=== PATIENT | male | born 1930 | race Caucasian/White ===

== ENCOUNTER → 2017-01-06 | Outpatient (CLI) | payer MEDICARE ==
[~2017-01-06] MED LIST: 'CLONIDINE0.1 MG PO; ACCUPRIL20 MG PO; ACETAMINOPHEN PO; ALLEGRA ALLERG180 M2 PO; ALLEGRA180 MG PO; ALLEGRA30 MG PO; AMBIEN10 M1 PO; AMBIEN10 MG PO; AMBIEN5 MG PO; AMLODIPINE BES2.5 MG PO; AMLODIPINE BESYL5 MG PO; ASPI-COR81 M1 PO; ASPIRIN ADULT L81 M1 PO; ASPIRIN CHEWABL81 M1 PO; ASPIRIN E.C.325 MG PO; ASPIRIN E.C.81 MG; ASPIRIN81 M1 PO; CATAPRES-TTS 10.1 MG PO; CIPROFLOXACIN500 MG PO; CLARITIN10 MG PO; CLONAZEPAM0.5 MG PO; CLONIDINE0.1 MG PO; CLONIDINE0.2 MG PO; COLACE100 MG PO; DELTASONE2.5 M1 PO; EXELON4.6 MG/24 TD; EYE VITAMIN-MI1 EACH PO; EYE VITAMINS1 TAB PO; FIORICET 325 MG1 TAB PO; FISH OIL 10001000 MG PO; FLOMAX0.4 MG PO; GABAPENTIN800 MG PO; HYDROCODONE BIT1 T11 PO; HYDROCODONE/ACE1 TA2 PO; IMDUR SA30 MG PO; IMDUR30 MG PO; IMDUR60 MG PO; Imdur SA60 MG PO; LACTULOSE; LAMISIL250 MG PO; LASIX20 MG PO; LEVAQUIN750 M1 PO; LEXAPRO10 MG PO; LIPITOR40 MG PO; LISINOPRIL2.5 MG PO; LISINOPRIL20 MG PO; LISINOPRIL5 MG PO; LOPRESSOR25 MG PO; LOPRESSOR50 M1 PO; MECLIZINE HCL12.5 MG PO; MECLIZINE HCL25 M2 PO; METOPROLOL TART50 M1 PO; MIRALAX17 GM PO; MOTRIN800 MG PO; Meclizine25 MG PO; NAPROSYN500 MG PO; NEURONTIN100 MG PO; NEURONTIN400 MG PO; NEURONTIN600 MG PO; NITROSTAT0.4 MG SL; NORCO 5-325 TA1 EACH PO; NORVASC2.5 MG PO; NORVASC5 MG PO; Nizoral 2%15 GM T; OXYGEN NAS; PERCOCET 325 MG1 TA2 PO; PERCOCET 325 MG1 TA7 PO; PERCOCET 325 MG1 TAB PO; PLAVIX75 M1 PO; PLAVIX75 MG PO; POTASSIUM CHLO10 MEQ PO; PREDNISONE2.5 MG PO; PREDNISONE5 MG PO; PRILOSEC20 MG PO; PRINIVIL10 MG PO; RANEXA1000 MG PO; RANITIDINE150 MG PO; REGLAN5 MG PO; RIVASTIGMINE1 EACH T; TRILEPTAL300 MG PO; VICODIN 5/500 505 MG PO; VITAMIN D; VITAMIN D32000 I1 PO; VITAMIN D34000 UNIT PO; Vicodin 5/500 505 MG PO; XOLEGEL2% T; ZANTAC; ZANTAC 150150 MG PO; ZESTRIL,PRINIVIL5 MG PO; ZETIA10 MG PO; ZOFRAN4 MG PO; ZOLOFT100 MG PO; ZOLOFT25 MG PO; ZYRTEC ALLERGY10 MG PO; ZYRTEC10 M3 PO; Zestril,Prinivil5 MG PO; Zofran4 MG PO; [UNRECOGNIZED DRUG - OTHER] PO; [UNRECOGNIZED DRUG - OTHER] PO
[2017-01-06 15:59] LABS: BASO # 0.1 10*3/uL (0.0-0.1); BASO % 0.7 % (0.0-1.0); EOS # 0.4 10*3/uL (0.0-0.4); EOS % 4.8 % (1.0-4.0); HEMATOCRIT 39.7 % (42.0-52.0); HEMOGLOBIN 13.1 g/dl (14.0-18.0); LYMPH # 1.8 10*3/uL (1.3-4.4); LYMPH % 24.4 % (27.0-41.0); MEAN CORPUSCULAR HGB 32.7 pg (27.0-31.0); MEAN PLATELET VOLUME 10.3 fl (9.6-12.3); MONO # 0.7 10*3/uL (0.1-1.0); MONO % 9.6 % (3.0-9.0); NEUT # 4.5 10*3/uL (2.3-7.9); NEUT % 60.2 % (47.0-73.0); PLATELET COUNT AUTOMATED 188 10*3/uL (130-400); RED BLOOD COUNT 4.01 10*6/uL (4.50-5.90); RED CELL DISTRI WIDTH 13.3 % (0-14.5); WHITE BLOOD COUNT 7.5 10*3/uL (4.8-10.8)
[2017-01-06 16:21] LABS: INTERNATIONAL NORM RATIO 1.1 (2.0-3.5)
== END | disposition home or self-care (01) ==
LOC: LAB 15:19
PROVIDERS: Internal Medicine Hematology & Oncology
DX: D68.9 Coagulation defect, unspecified (principal); D75.9 Disease of blood and blood-forming organs, unspecified; D63.8 Anemia in other chronic diseases classified elsewhere

== ENCOUNTER 2017-01-24 11:37 | Emergency (ER) | payer MEDICARE ==
[~2017-01-24] VITALS: Wt 81.6 kg
[2017-01-24 12:12] LABS: BASO % 0.3 % (0.0-1.0); EOS # 0.2 10*3/uL (0.0-0.4); EOS % 1.4 % (1.0-4.0); HEMATOCRIT 40.2 % (42.0-52.0); HEMOGLOBIN 13.2 g/dl (14.0-18.0); LYMPH # 2.8 10*3/uL (1.3-4.4); LYMPH % 26.4 % (27.0-41.0); MEAN CELL VOLUME 98.3 fl (80.0-94.0); MEAN CORPUSCULAR HGB 32.3 pg (27.0-31.0); MEAN CORPUSCULAR HGB CONC 32.8 g/dl (33.0-37.0); MEAN PLATELET VOLUME 10.1 fl (9.6-12.3); MONO # 0.9 10*3/uL (0.1-1.0); MONO % 8.1 % (3.0-9.0); NEUT # 6.7 10*3/uL (2.3-7.9); NEUT % 63.5 % (47.0-73.0); PLATELET COUNT AUTOMATED 193 10*3/uL (130-400); RED BLOOD COUNT 4.09 10*6/uL (4.50-5.90); RED CELL DISTRI WIDTH 13.8 % (0-14.5); WHITE BLOOD COUNT 10.6 10*3/uL (4.8-10.8)
[2017-01-24 12:25] LABS: INTERNATIONAL NORM RATIO 1.1 (2.0-3.5); PROTHROMBIN TIME 11.6 SECONDS (9.0-12.4)
[2017-01-24 12:35] VITALS: BP 168/92
[2017-01-24 12:35] LABS: BILIRUBIN NEGATIVE (NEGATIVE); BLOOD NEGATIVE (NEGATIVE); CLARITY SL CLOUDY (CLEAR); COLOR YELLOW (YELLOW); GLUCOSE NEGATIVE (NEGATIVE); KETONE TRACE (NEGATIVE); LEUKO ESTERASE NEGATIVE (NEGATIVE); NITRITE NEGATIVE (NEGATIVE); PH 5.5 (5.0-9.0); PROTEIN NEGATIVE (NEGATIVE); UROBILINOGEN 0.2 E.U./dl (0.2-1.0)
[2017-01-24 12:37] LABS: ALBUMIN 3.4 gm/dl (3.1-4.5); BUN 36 mg/dl (7-24); CARBON DIOXIDE 28 mmol/L (21-32); CHLORIDE 105 mmol/L (98-107); EST GLOM FILT AFRICAN AMERICAN 44 ml/min; GLUCOSE 96 mg/dL (65-99); MAGNESIUM 2.5 mg/dL (1.5-2.1); POTASSIUM 4.9 mmol/L (3.5-5.1); SGOT/AST 23 IU/L (3-35); SGPT/ALT 23 U/L (12-78); SODIUM 141 mmol/L (136-145)
[2017-01-24 12:49] LABS: ALKALINE PHOSPHATASE 66 U/L (45-117); BILIRUBIN, TOTAL 0.5 mg/dl (0.2-1.0); CKMB 1.1 ng/ml (0.5-3.6); CPK 114 U/L (39-308)
[2017-01-24 12:51] LABS: URINE REFLEX COMMENT NO (NO)
[2017-01-24 12:51] LABS: C-REACTIVE PROTEIN < 0.29 MG/DL (0-0.3); TROPONIN I < 0.015 ng/ml (<0.045)
== END 2017-01-24 12:45 | disposition short-term general hospital (02) ==
LOC: ED 11:37
PROVIDERS: Emergency Medicine
DX: I63.9 Cerebral infarction, unspecified (principal); I25.10 Atherosclerotic heart disease of native coronary artery without angina pectoris; I11.0 Hypertensive heart disease with heart failure; I50.32 Chronic diastolic (congestive) heart failure; K21.9 Gastro-esophageal reflux disease without esophagitis; G62.9 Polyneuropathy, unspecified; M19.90 Unspecified osteoarthritis, unspecified site; G30.9 Alzheimer's disease, unspecified; F02.80 Dementia in other diseases classified elsewhere, unspecified severity, without behavioral disturbance, psychotic disturbance, mood disturbance, and anxiety; Z79.899 Other long term (current) drug therapy; Z86.73 Personal history of transient ischemic attack (TIA), and cerebral infarction without residual deficits

== ENCOUNTER 2017-04-16 13:04 | Emergency (ER) | payer MEDICARE ==
[~2017-04-16] VITALS: Ht 167.6 cm; Wt 77.1 kg
[2017-04-16 13:43] LABS: BASO # 0.1 10*3/uL (0.0-0.1); BASO % 0.5 % (0.0-1.0); EOS # 0.2 10*3/uL (0.0-0.4); EOS % 2.1 % (1.0-4.0); HEMATOCRIT 42.4 % (42.0-52.0); HEMOGLOBIN 13.5 g/dl (14.0-18.0); LYMPH # 2.6 10*3/uL (1.3-4.4); LYMPH % 23.8 % (27.0-41.0); MEAN CELL VOLUME 101.9 fl (80.0-94.0); MEAN CORPUSCULAR HGB 32.5 pg (27.0-31.0); MEAN CORPUSCULAR HGB CONC 31.8 g/dl (33.0-37.0); MEAN PLATELET VOLUME 10.5 fl (9.6-12.3); MONO % 9.4 % (3.0-9.0); NEUT # 7.1 10*3/uL (2.3-7.9); NEUT % 63.7 % (47.0-73.0); PLATELET COUNT AUTOMATED 168 10*3/uL (130-400); RED BLOOD COUNT 4.16 10*6/uL (4.50-5.90); RED CELL DISTRI WIDTH 14.1 % (0-14.5); WHITE BLOOD COUNT 11.1 10*3/uL (4.8-10.8)
[2017-04-16 14:01] LABS: ALBUMIN 3.2 gm/dl (3.1-4.5); CREATININE 1.49 mg/dL (0.70-1.30); POTASSIUM 4.9 mmol/L (3.5-5.1); TOTAL PROTEIN 7.3 gm/dL (6.4-8.2)
[2017-04-16 14:40] LABS: BILIRUBIN NEGATIVE (NEGATIVE); BLOOD TRACE-INTACT (NEGATIVE); CLARITY SL CLOUDY (CLEAR); COLOR YELLOW (YELLOW); GLUCOSE NEGATIVE (NEGATIVE); KETONE NEGATIVE (NEGATIVE); LEUKO ESTERASE NEGATIVE (NEGATIVE); NITRITE NEGATIVE (NEGATIVE); PH 5.5 (5.0-9.0); SPECIFIC GRAVITY 1.015 (1.005-1.030); UROBILINOGEN 0.2 E.U./dl (0.2-1.0)
[2017-04-16 14:55] LABS: BACTERIA TRACE; WBC 0-2 wbc/hpf (0-5)
[2017-04-16 15:35] VITALS: BP 110/80
[2017-04-16] MEDS ORDERED: NORCO 10-325 T1 EACH PO (17:20)
== END 2017-04-16 17:21 | disposition home or self-care (01) ==
LOC: ED 13:04
PROVIDERS: Emergency Medicine
DX: M25.552 Pain in left hip (principal); R10.32 Left lower quadrant pain; I25.10 Atherosclerotic heart disease of native coronary artery without angina pectoris; M19.90 Unspecified osteoarthritis, unspecified site; K21.9 Gastro-esophageal reflux disease without esophagitis; I11.0 Hypertensive heart disease with heart failure; I50.9 Heart failure, unspecified; Z90.49 Acquired absence of other specified parts of digestive tract; Z86.73 Personal history of transient ischemic attack (TIA), and cerebral infarction without residual deficits; Z86.718 Personal history of other venous thrombosis and embolism; Z86.711 Personal history of pulmonary embolism; Z95.0 Presence of cardiac pacemaker; Z98.890 Other specified postprocedural states; Z95.1 Presence of aortocoronary bypass graft; Z79.899 Other long term (current) drug therapy; Z79.82 Long term (current) use of aspirin

== ENCOUNTER 2017-04-19 17:26 | Emergency (ER) | payer MEDICARE ==
[~2017-04-19] VITALS: Wt 82.6 kg
[~2017-04-19 17:26] MED LIST changes: +NORCO 10-325 T1 EACH PO
[2017-04-19 18:29] LABS: BASO # 0.1 10*3/uL (0.0-0.1); BASO % 0.6 % (0.0-1.0); EOS # 0.3 10*3/uL (0.0-0.4); EOS % 3.4 % (1.0-4.0); HEMATOCRIT 38.2 % (42.0-52.0); HEMOGLOBIN 12.4 g/dl (14.0-18.0); LYMPH # 2.4 10*3/uL (1.3-4.4); LYMPH % 27.7 % (27.0-41.0); MEAN CORPUSCULAR HGB 32.5 pg (27.0-31.0); MEAN CORPUSCULAR HGB CONC 32.5 g/dl (33.0-37.0); MEAN PLATELET VOLUME 10.4 fl (9.6-12.3); MONO # 0.8 10*3/uL (0.1-1.0); MONO % 9.2 % (3.0-9.0); NEUT # 5.2 10*3/uL (2.3-7.9); PLATELET COUNT AUTOMATED 193 10*3/uL (130-400); RED BLOOD COUNT 3.82 10*6/uL (4.50-5.90); RED CELL DISTRI WIDTH 13.6 % (0-14.5); WHITE BLOOD COUNT 8.8 10*3/uL (4.8-10.8)
[2017-04-19 18:46] LABS: ALBUMIN 3.2 gm/dl (3.1-4.5); CREATININE 1.52 mg/dL (0.70-1.30); POTASSIUM 4.7 mmol/L (3.5-5.1); TOTAL PROTEIN 6.7 gm/dL (6.4-8.2)
[2017-04-19 19:40] LABS: BILIRUBIN 1+ (NEGATIVE); BLOOD NEGATIVE (NEGATIVE); CLARITY SL CLOUDY (CLEAR); COLOR YELLOW (YELLOW); GLUCOSE NEGATIVE (NEGATIVE); KETONE NEGATIVE (NEGATIVE); LEUKO ESTERASE NEGATIVE (NEGATIVE); NITRITE NEGATIVE (NEGATIVE); PH 5.5 (5.0-9.0); SPECIFIC GRAVITY 1.025 (1.005-1.030)
[2017-04-19 19:46] LABS: BACTERIA 1+
[2017-04-19 20:00] VITALS: BP 123/78
[2017-04-19] MEDS ORDERED: NORCO 5-325 TA1 EACH PO (20:02)
== END 2017-04-19 21:03 | disposition home or self-care (01) ==
LOC: ED 17:26
PROVIDERS: Physician Assistant
DX: M48.06 Spinal stenosis, lumbar region (principal); M25.552 Pain in left hip; M25.551 Pain in right hip; Z79.899 Other long term (current) drug therapy

== ENCOUNTER 2017-04-27 16:18 | Emergency (ER) | payer MEDICARE ==
[~2017-04-27] VITALS: Ht 167.6 cm; Wt 80.7 kg
[2017-04-27 16:25] VITALS: BP 139/80
[2017-04-27 17:40] LABS: BASO % 0.4 % (0.0-1.0); EOS # 0.1 10*3/uL (0.0-0.4); EOS % 0.8 % (1.0-4.0); HEMATOCRIT 40.1 % (42.0-52.0); HEMOGLOBIN 13.2 g/dl (14.0-18.0); LYMPH # 1.9 10*3/uL (1.3-4.4); LYMPH % 16.9 % (27.0-41.0); MEAN CELL VOLUME 98.8 fl (80.0-94.0); MEAN CORPUSCULAR HGB 32.5 pg (27.0-31.0); MEAN CORPUSCULAR HGB CONC 32.9 g/dl (33.0-37.0); MEAN PLATELET VOLUME 9.9 fl (9.6-12.3); MONO # 0.9 10*3/uL (0.1-1.0); MONO % 8.5 % (3.0-9.0); NEUT % 73.1 % (47.0-73.0); PLATELET COUNT AUTOMATED 237 10*3/uL (130-400); RED BLOOD COUNT 4.06 10*6/uL (4.50-5.90); RED CELL DISTRI WIDTH 13.7 % (0-14.5)
[2017-04-27 17:45] LABS: BILIRUBIN 1+ (NEGATIVE); BLOOD NEGATIVE (NEGATIVE); CLARITY SL CLOUDY (CLEAR); COLOR YELLOW (YELLOW); GLUCOSE NEGATIVE (NEGATIVE); KETONE TRACE (NEGATIVE); LEUKO ESTERASE NEGATIVE (NEGATIVE); NITRITE NEGATIVE (NEGATIVE); PH 5.5 (5.0-9.0); SPECIFIC GRAVITY 1.025 (1.005-1.030)
[2017-04-27 17:51] LABS: ACT PARTIAL THROMBO TIME 23.2 SECONDS (20.8-31.5); INTERNATIONAL NORM RATIO 1.2 (2.0-3.5)
[2017-04-27 17:52] LABS: BACTERIA 2+; EPITHELIAL CELLS 0-2; RBC 0-2 rbc/hpf (0-2)
[2017-04-27 17:59] LABS: ALBUMIN 3.3 gm/dl (3.1-4.5); ALKALINE PHOSPHATASE 90 U/L (45-117); BUN 21 mg/dl (7-24); CHLORIDE 107 mmol/L (98-107); CKMB 0.6 ng/ml (0.5-3.6); CPK 60 U/L (39-308); CREATININE 1.35 mg/dL (0.70-1.30); LIPASE 117 U/L (73-393); MAGNESIUM 2.3 mg/dL (1.5-2.1); POTASSIUM 4.1 mmol/L (3.5-5.1); SGOT/AST 17 IU/L (3-35); SGPT/ALT 21 U/L (12-78); SODIUM 139 mmol/L (136-145)
[2017-04-27 18:01] LABS: TROPONIN I < 0.015 ng/ml (<0.045)
[2017-04-27] MEDS ORDERED: LASIX40 MG PO (21:30)
[2017-04-27] MEDS ORDERED: SEROQUEL25 MG PO (21:31)
[2017-04-27] MEDS ORDERED: VITAMIN D-32000 UNI1 PO (21:32)
[2017-04-27] MEDS ORDERED: ZOFRAN4 MG PO (21:33)
== END 2017-04-27 22:22 | disposition admitted as inpatient to this hospital (09) ==
LOC: ED 16:18
PROVIDERS: Emergency Medicine
DX: F33.3 Major depressive disorder, recurrent, severe with psychotic symptoms (principal); I11.0 Hypertensive heart disease with heart failure; I50.32 Chronic diastolic (congestive) heart failure; K21.9 Gastro-esophageal reflux disease without esophagitis; M19.90 Unspecified osteoarthritis, unspecified site; G62.9 Polyneuropathy, unspecified; I25.10 Atherosclerotic heart disease of native coronary artery without angina pectoris; Z86.73 Personal history of transient ischemic attack (TIA), and cerebral infarction without residual deficits; Z79.899 Other long term (current) drug therapy

== ENCOUNTER 2017-04-27 18:49 | Inpatient (IN) | payer MEDICARE ==
[~2017-04-27] VITALS: Ht 165.1 cm; Wt 80.9 kg
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
--- NOTE | ~2017-04-27 | PR ---
[place], [place] PROGRESS NOTE NAME: DARIO HUNT UNIT #: [id number] ROOM: 317 DOCTOR: VIANCA HARPER MD BIRTHDATE: [birth year] DOS: 04/29/2017 CHIEF COMPLAINT: "Good morning, call you my family, I need to talk to them." SUMMARY OF THE VISIT: The patient was interviewed as he was resting in bed. He did awake and engaged readily in conversation as he was yesterday. He was fixated on me, contacting his family and attempting to get a hold of them, so he can get out of here. He did calm and redirect when I told him that we would do that after breakfast. He voiced no other complaints. MENTAL STATUS: He is alert and oriented to self. It is unclear if he realizes where he is at and he is not oriented to time. Mood does seem to be somewhat anxious and fretful and he requires a great deal of support and redirection. There are no auditory or visual hallucinations, no delusions, no paranoia. There is no hypomania or micheal. Short term memory remains exceedingly poor. PLAN: I will increase Exelon patch from 4.6 to 9.5 mg a day, continue to engage in individual and hill milieu activity, explore possible placement options discharging then to the least restrictive environment when stable. VIANCA HARPER MD CM:PNTRANS [id number] VIANCA HARPER MD 04/29/17912 interface
--- NOTE | ~2017-04-27 | CON ---
[place], [place] REPORT OF CONSULTATION NAME: DARIO HUNT UNIT #: [id number] ROOM: 317 DOCTOR: RICARDA KINCAID MD BIRTHDATE: [birth year] DOS: 04/29/2017 HISTORY OF PRESENT ILLNESS: A rapid response was called at 2225 hours for complaints of chest pain. A short while before the rapid response was called, the patient complained of chest pain and the resident gave the patient Imdur 60 mg by mouth. The patient stated that he had been symptomatic with chest pain for about 15 minutes with associated nausea and vomiting. He also reports that his pacemaker fired. He said that prior to developing the chest pain; he had a lot of mucus in his throat, which he was expectorating. The pain persisted, though did not radiate to the chest or the shoulders or the back and was not associated with any shortness of breath. He is in the behavior unit ____ moderate cognitive disability. PHYSICAL EXAMINATION: GENERAL: On exam, he appears to be slightly uncomfortable because of mild central chest pain. SKIN: Warm and dry. HEENT: Normal examination. CHEST: Symmetrical. LUNGS: Clear. HEART: Regular and rhythmic. No murmurs, gallops, rubs or clicks appreciated ABDOMEN: Flat, soft, nontender. Bowel sounds present. EXTREMITIES: No edema. Pulses present bilaterally. NEUROLOGIC: No lateralizing signs. DIAGNOSTIC STUDIES: EKG showed a paced rhythm, could not be further identified. ASSESSMENT AND PLAN: Chest pain, history of coronary artery disease, history of cognitive disability. After evaluation, I recommended a 12-lead EKG, chest x-ray and troponin along with electrolytes. The patient was transferred to the ICU. I discussed the patient's case with the hospitalist and recommended a workup for near syncope. Results of the chest x-ray, troponin, electrolytes and CBC are pending and should be available in 48-72 hours. DIAGNOSES: Chest pain, history of coronary artery disease and cognitive disability. EKG, chest x-ray, troponin, electrolytes, transfer to the ICU were discussed with the hospitalist. [place], [place] REPORT OF CONSULTATION NAME: DARIO HUNT UNIT #: [id number] ROOM: 317 DOCTOR: RICARDA KINCAID MD BIRTHDATE: [birth year] RICARDA KINCAID MD CM:CONSTR:REPORT OF CONSULTATION 0505 05/02/17 1401 interface
--- NOTE | 2017-04-27 20:05 | NUR ---
DARIO HUNT a 87 year old M admitted via wheel chair from the EMERGENCY ROOM as a voluntary admission BY POA. Arrived on unit at 2004. ALLERGIES: RAGWEED. Vital signs are: 97.9-93-18 138/85. The POA GAVE VERBAL CONSENT FOR the following forms with stated understanding: Authorization For The Release of Medical Information, Clothing List, Consent to Voluntary Admission and Hospitalization, Consent and Release Forms/Receipt of Rights, Acknowledgement of Advance Directive Information, Behavioral Health Consent Form, and Informed Consent of Medications. [facility] A search was conducted and hazardous articles were removed. Client was oriented to the unit. KATHY ALEX
[2017-04-27] MEDS ORDERED: LASIX40 MG PO (21:30)
--- NOTE | 2017-04-27 21:30 | NUR ---
ATTEMPTED TO CALL [facility] AT [phone] TO VERIFY MEDICATIONS AND WAS UNABLE TO GET THROUGH. WILL CONTINUE TO TRY.
[2017-04-27] MEDS ORDERED: SEROQUEL25 MG PO (21:31)
[2017-04-27] MEDS ORDERED: VITAMIN D-32000 UNI1 PO (21:32)
[2017-04-27] MEDS ORDERED: ZOFRAN4 MG PO (21:33)
--- NOTE | 2017-04-27 21:44 | NUR ---
DR JACINTO UPDATED ON NEW PT ADMIT. GAVE ORDER TO PUT CONSULT UNDER DR RODDY MACKAY. NOTIFEIED THAT MED REC AND HEALTH HISTORY WAS COMPLETED.
--- NOTE | 2017-04-27 22:15 | NUR ---
ATTEMPTED TO CONTACT GROUP HOME AGAIN WITH NO SUCCESS.
--- NOTE | 2017-04-27 23:00 | NUR ---
ATTEMPTED TO CALL [facility] AGAIN WITH NO SUCESS. WILL PASS ON TO DAYLIGHT TO VERIFY MEDICATIONS AND FLU VACCINE.
[2017-04-27 23:03] VITALS: BP 138/85
[2017-04-27 23:11] VITALS: BP 138/85
--- NOTE | 2017-04-28 01:17 | NUR ---
24 HR chart check completed.
--- NOTE | 2017-04-28 01:38 | NUR ---
PT WAS CALM AND COOPERATIVE WITH ASSESSMENT AND ADMISSION SCREENS. 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 sAME APPLIES TO GLASSES. PT HAD LEFT GLASSES AT LONGTERM. PT DID BRING UPPER AND LOWER DENTURES THAT WERE HANDED TO THIS NURSE IN THE ER. DAUGHTER STAYED TO HELP ANSWER QUESTIONS IN THE ADMISSION PROCESS AND TO MAKE PT WAS CALM BEFORE SHE LEFT. PT WENT TO THE DININGROOM AND ATE SNACK AFTER THE ADMISSION WAS COMPLETED. PT HAS BEEN PLEASANTLY CONFUSED. PT THOUGHT HE WAS AT CUSTODIAL. ASSURED PT HE WAS NOT IN TROUBLE AND WAS NOT AT CUSTODIAL. REMINDED PT HE IS AT A HOSPITAL. DIRECTED EASILY. PT DENIES SI, HI, HALLUCINATIONS OR DELUSIONS. PT NOTED TO HAVE AUDITORY AND COMMAND HALLUCINATIONS TELLING HIM TO THROW A CHAIR OUT THE WINDOW AT THE LONGTERM. NO S/S OF DISTRESS. NO C/O PAIN.
--- NOTE | 2017-04-28 06:23 | NUR ---
PT SLEPT APPROXIMATELY 6 HOURS. NO S/S OF HALLUCINATIONS. NO DELUSIONS. Q15 MINUTE SAFETY CHECKS MAINTAINED. SEE [facility] FLOWSHEETS FOR SPECIFIC MONITORING.
[2017-04-28 07:17] LABS: BASO % 0.2 % (0.0-1.0); EOS # 0.2 10*3/uL (0.0-0.4); HEMATOCRIT 41.9 % (42.0-52.0); LYMPH # 3.2 10*3/uL (1.3-4.4); LYMPH % 28.1 % (27.0-41.0); MEAN CELL VOLUME 98.4 fl (80.0-94.0); MEAN CORPUSCULAR HGB 32.9 pg (27.0-31.0); MEAN CORPUSCULAR HGB CONC 33.4 g/dl (33.0-37.0); MONO # 0.9 10*3/uL (0.1-1.0); MONO % 7.6 % (3.0-9.0); NEUT # 7.1 10*3/uL (2.3-7.9); NEUT % 61.8 % (47.0-73.0); PLATELET COUNT AUTOMATED 252 10*3/uL (130-400); RED BLOOD COUNT 4.26 10*6/uL (4.50-5.90); RED CELL DISTRI WIDTH 13.8 % (0-14.5); WHITE BLOOD COUNT 11.5 10*3/uL (4.8-10.8)
[2017-04-28 07:48] LABS: BUN 17 mg/dl (7-24); CHLORIDE 106 mmol/L (98-107); CREATININE 1.35 mg/dL (0.70-1.30); POTASSIUM 4.1 mmol/L (3.5-5.1); SODIUM 141 mmol/L (136-145)
[2017-04-28 08:06] VITALS: BP 116/68
--- NOTE | 2017-04-28 08:47 | NUR ---
TREATEMENT TEAM WAS HELD WITH THE FOLLOWING : DR. MEREDITH RN., SW, AT. oRCHARDS OF MAY NOT TAKE PT BACK.
--- NOTE | 2017-04-28 10:51 | NUR ---
PHYSICAL THERAPY PAtient evaluated on 3, full evaluation to follow. Continue with PT as per plan of care with fall, unit three and alarms precautions. Return to home with 27/02 family assist and home health Rn and PT. PAtient is moderate complexity via chart review, tests and evaluation: [id number]. Thank you for this referral. Lizbeth Ponce,PT
--- NOTE | 2017-04-28 13:06 | NUR ---
VERIFIED WITH KATERYNA AT THE ORCHARDS THAT PT DIDN';T RECEIVE HIS FLU VACCINE, PT WASN;T ON CLONODINE 0.1 MG PRN, GABAPENTIN 800 MG, INDUR 60 MG QD, MECLIZINE 12.5 MG TID.
--- NOTE | 2017-04-28 13:14 | NUR ---
Occupational Therapy evaluation completed this date on [facility] with full eval to follow. 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 Recommend no further OT at this time and return to intermediate at [facility]. Thank you for this referral. Kiara Mcghee OTR/L
--- NOTE | 2017-04-28 13:39 | NUR ---
Eercise/Independent Activity Exercise helps with circulation,staying active and joints mobile. Independent Activity helps a patient make a choice,concentrate,thinking. Patient did come to group this morning for approximately 10 minutes then stated he needed to look for his daughter. I attempted to redirect patient back to group x3 but patient could not be redirected and left group
--- NOTE | 2017-04-28 17:24 | NUR ---
PT DID NOT ATTEND GROUP DUE TO SLEEPING.
[2017-04-28 20:10] VITALS: BP 118/70
--- NOTE | 2017-04-29 04:01 | NUR ---
PT REFUSED HIS 0400 DOSE OF NORCO. PT RESTING COMFORTABLY IN BED. NO S/S OF DISTRESS. NO C/O PAIN. WILL CONTINUE TO MONITOR PT FOR PAIN.
--- NOTE | 2017-04-29 06:15 | NUR ---
PT SLEPT GREATER THAN 8 HOURS. NO S/S OF DISTRESS NOTED. NO C/O PAIN. SEE [facility] FLOWSHEET FOR SPECIFIC MONITORING. Q15 MINUTE SAFETY CHECKS MAINTAINED.
[2017-04-29 08:18] LABS: BILIRUBIN NEGATIVE (NEGATIVE); BLOOD NEGATIVE (NEGATIVE); CLARITY CLEAR (CLEAR); COLOR YELLOW (YELLOW); GLUCOSE NEGATIVE (NEGATIVE); KETONE NEGATIVE (NEGATIVE); LEUKO ESTERASE NEGATIVE (NEGATIVE); NITRITE NEGATIVE (NEGATIVE); SPECIFIC GRAVITY >= 1.030 (1.005-1.030); UROBILINOGEN 0.2 E.U./dl (0.2-1.0)
[2017-04-29 08:36] LABS: BACTERIA 2+; CALCIUM OXALATE CRYSTALS 2+; MUCOUS 3+; RBC 0-2 rbc/hpf (0-2)
[2017-04-29 09:08] VITALS: BP 116/62
--- NOTE | 2017-04-29 14:15 | NUR ---
PT IS ALERT AND ORIENTED TO PERSON AND APPROXIMATE TIME. MOOD IS STABLE AND EUTHYMIC WITH APPROPRIATE AFFECT. PERIODS OF CONFUSION WITH ST/LT MEMORY DEFICITS NOTED. PLEASANT AND COOPERATIVE WITH STAFF. MEDICATION COMPLIANT WITHOUT DIFFICULTY. NAPS INTERMITTENTLY THROUGHOUT THE SHIFT. APPETITE GOOD FOR MEALS. TAKING FLUID WELL. NO HALLUCINATIONS, DELUSIONS, BEHAVIORS NOTED THIS SHIFT. DENIES ANY PAIN, STATES HIS ROUTINE MEDICATIONS ARE EFFECTIVE. NO S/S ANXIETY THIS SHIFT. RESPIRATIONS EASY AND EVEN. NO ACUTE DISTRESS NOTED.
--- NOTE | 2017-04-29 14:18 | NUR ---
Shift chart check completed.
[2017-04-29 20:21] VITALS: BP 111/68
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
--- NOTE | 2017-04-29 22:16 | NUR ---
PT REPORTING CHEST PAIN MIDSTERNAL RATE OF 8 ON A SCALE TO 10. VITALS OBTAINED P 87, R 20, BP 140/102 1-[address] CALL PLAC[address] TO DR. ROBERTSON ORDERS RECIEVED TO GIVE NOW DOSE OF IMDUR 60 MG AND TO BEGIN DAILY DOSE OF IMDUR 60 PO DAILY TO START 05/01/17 AT 0900. ORDERS
--- NOTE | 2017-04-29 22:20 | NUR ---
PT VOMITING CO INCREASED CHEST PAIN RAPID RESONSE CALLED
--- NOTE | 2017-04-29 22:25 | NUR ---
RAPID RESPONSE TEAM ON UNIT, DR. JUNIOR PRESENT ORDERS OBTAINED TO TRANSFER TO ICCU BED DX OF CHEST PAIN. DC MEDS REVIEWED WITH ARRON CARBAJAL ORDER TO D/C ENTERED AND MEDICATIONS CONTINUED WITH THE EXCEPTION OF PRN ATIVAN AND GEODON. CALL PLACED TO BOTH DAUGHTER FABAINO DRUMMOND AND ALSO LISET VILLARREAL AND UPDATED ON PT STATUS. .
--- NOTE | 2017-04-29 22:40 | NUR ---
PT OFF OF UNIT IN BED WITH TRANSPORTED BY RAPID RESPONSE TEAM. EKG PERFORMED AND LAB WORK OBTAINED. PT ALERT AND SUSAL LEVEL OF ORIENTATION TO PERSON ONLY.
[2017-04-29] MEDS ORDERED: INVEGA6 MG PO (22:42)
[2017-04-29] MEDS ORDERED: REMERON15 M2 PO (22:42)
--- NOTE | 2017-04-29 22:44 | NUR ---
NURSE TO NURSE CALLED TO ICCU NURSE, MESSAGE ORDER TO REGISTRATION PLACED INTO COMPUTER.
== END 2017-04-29 22:53 | disposition short-term general hospital (02) | DRG 885 ==
LOC: 3N 18:49
PROVIDERS: Hospitalist; ADMIT Psychiatry & Neurology Psychiatry
DX: F33.3 Major depressive disorder, recurrent, severe with psychotic symptoms (principal); I11.0 Hypertensive heart disease with heart failure; I50.32 Chronic diastolic (congestive) heart failure; F03.91 Unspecified dementia, unspecified severity, with behavioral disturbance; Z96.651 Presence of right artificial knee joint; R29.6 Repeated falls; K21.9 Gastro-esophageal reflux disease without esophagitis; M15.0 Primary generalized (osteo)arthritis; E55.9 Vitamin D deficiency, unspecified; H35.30 Unspecified macular degeneration; I25.10 Atherosclerotic heart disease of native coronary artery without angina pectoris; G62.9 Polyneuropathy, unspecified; Z95.1 Presence of aortocoronary bypass graft; D64.9 Anemia, unspecified; Z86.73 Personal history of transient ischemic attack (TIA), and cerebral infarction without residual deficits; Z86.711 Personal history of pulmonary embolism; Z90.49 Acquired absence of other specified parts of digestive tract; Z86.718 Personal history of other venous thrombosis and embolism; Z95.810 Presence of automatic (implantable) cardiac defibrillator; Z83.3 Family history of diabetes mellitus; Z82.49 Family history of ischemic heart disease and other diseases of the circulatory system; Z82.61 Family history of arthritis; Z88.8 Allergy status to other drugs, medicaments and biological substances; Z79.1 Long term (current) use of non-steroidal anti-inflammatories (NSAID); Z79.82 Long term (current) use of aspirin; Z79.899 Other long term (current) drug therapy; R07.9 Chest pain, unspecified

== ENCOUNTER 2017-04-29 22:59 | Inpatient (IN) | payer MEDICARE ==
[~2017-04-29] VITALS: Ht 180.3 cm; Wt 73.6 kg
--- NOTE | ~2017-04-29 | EKG ---
[place], [place] ELECTROCARDIOGRAM REPORT NAME: DARIO HUNT UNIT #: [id number] ROOM: [place] [address] DOCTOR: CHRISTINA MARTINEZ,GABBIE BIRTHDATE: [birth year] DOS: 04/29/2017 TIME: 2229 hours. IMPRESSION: 1. Sinus rhythm. 2. Ventricular pacing. GABBIE VASQUEZ MD CM:EKGRPT:ELECTROCARDIOGRAM REPORT [id number] GABBIE VASQUEZ MD
[2017-04-29 22:45] VITALS: BP 152/92
--- NOTE | 2017-04-29 22:45 | NUR ---
A 87, admitted to ICCU, under the services of JUSTIN Troy DO with a diagnosis of CHEST PAIN. Chief complaint is CHEST PAIN. Patient arrived [place] stretcher from [place]. Monitor applied. Initial assessment completed. Vital signs taken and recorded. JUSTIN TROY DO notified of admission to the unit. Orders received. See assessment for past medical history, medications and allergies. Patient and/or family oriented to unit. [facility] ICCU visitation policy reviewed. Clothing/patient valuable form completed. ROBBIN SMALL
[~2017-04-29 22:59] MED LIST changes: +INVEGA6 MG PO; +LASIX40 MG PO; +REMERON15 M2 PO; +SEROQUEL25 MG PO; +VITAMIN D-32000 UNI1 PO
[2017-04-29 23:35] LABS: BASO % 0.4 % (0.0-1.0); EOS # 0.3 10*3/uL (0.0-0.4); EOS % 2.7 % (1.0-4.0); HEMATOCRIT 37.5 % (42.0-52.0); HEMOGLOBIN 12.4 g/dl (14.0-18.0); LYMPH # 1.6 10*3/uL (1.3-4.4); LYMPH % 17.2 % (27.0-41.0); MEAN CELL VOLUME 99.2 fl (80.0-94.0); MEAN CORPUSCULAR HGB 32.8 pg (27.0-31.0); MEAN CORPUSCULAR HGB CONC 33.1 g/dl (33.0-37.0); MONO # 0.8 10*3/uL (0.1-1.0); MONO % 8.5 % (3.0-9.0); NEUT # 6.6 10*3/uL (2.3-7.9); NEUT % 70.9 % (47.0-73.0); PLATELET COUNT AUTOMATED 217 10*3/uL (130-400); RED BLOOD COUNT 3.78 10*6/uL (4.50-5.90); RED CELL DISTRI WIDTH 13.7 % (0-14.5); WHITE BLOOD COUNT 9.3 10*3/uL (4.8-10.8)
[2017-04-29 23:44] LABS: ALBUMIN 3.4 gm/dl (3.1-4.5); ALKALINE PHOSPHATASE 89 U/L (45-117); BUN 28 mg/dl (7-24); CHLORIDE 105 mmol/L (98-107); CREATININE 1.37 mg/dL (0.70-1.30); POTASSIUM 4.5 mmol/L (3.5-5.1); SGOT/AST 27 IU/L (3-35); SGPT/ALT 31 U/L (12-78); SODIUM 137 mmol/L (136-145); TOTAL PROTEIN 7.1 gm/dL (6.4-8.2)
[2017-04-29 23:45] LABS: TROPONIN I < 0.015 ng/ml (<0.045)
[2017-04-30] VITALS: BP 117/61
--- NOTE | 2017-04-30 06:29 | NUR ---
PATIENT AWAKE NOW AND AGITATED WANTING TO LEAVE AND GO CHECK ON CAT. PATIENT YELLING WANTS HIS CAR. TRYING TO GET OUT OF BED.
--- NOTE | 2017-04-30 06:48 | NUR ---
MEDICATED WITH ONE TIME DOSE IV ATIVAN PER ORDER.
[2017-04-30 08:00] VITALS: BP 90/40
[2017-04-30 12:00] VITALS: BP 158/79
--- NOTE | 2017-04-30 13:06 | NUR ---
PATIENT VERY AGITATED. COMBATIVE WITH STAFF. SWINGING AND KICKING LEGS. REDIRECTION INEFFECTIVE. CALLED DR. BILLY AND NEW ORDER RECEIVED FOR ATIVAN IV. MEDICATED AT THIS TIME WITH ATIVAN 1MG IV PER PRN ORDER. WILL CONTINUE TO MONITOR.
[2017-04-30 16:00] VITALS: BP 135/81
--- NOTE | 2017-04-30 17:30 | NUR ---
PATIENT VERY RESTLESS AND AGITATED. CONSTANTLY PULLING AT RESTRAINTS. SWINGING LEGS. MEDICATED WITH ATIVAN 1MG IV PER PRN ORDER. WILL CONTINUE TO MONITOR.
[2017-04-30 20:00] VITALS: BP 114/78
--- NOTE | 2017-04-30 20:20 | NUR ---
1950 1:1 SITTER REMAINS AT THE BEDSIDE. PT SIDE RAILS UP X'S 4. WRIST RESTRAINTS INTACT BILATERALLY. CIRCULATION ADEQUATE. REMAINS CONFUSED. TALKING TO HIMSELF. DOES NOT FOLLOW COMMANDS. IV FLUIDS CONT. VALADEZ PATENT AND DRAINING CLEAR YELLOW URINE. PULSE OX 96% ON RA. NO DISTRESS NOTED.
--- NOTE | 2017-04-30 21:47 | NUR ---
2130 ATIVAN 1MG IV GIVEN FOR CONT RESLTESSNESS AND AGITATION. WILL MONITOR.
--- NOTE | 2017-04-30 22:11 | NUR ---
EARLIER ATIVAN EFFECTIVE. RESTING IN BED WITH EYES CLOSED.
[2017-05-01] VITALS: BP 123/78
--- NOTE | 2017-05-01 00:09 | NUR ---
REMAINS SLEEPING WIHTOUT DISTRESS. 02 APPLED AT 2L VIA NC. PT WEARS 02 AT HS AT HOME.
[2017-05-01 04:00] VITALS: BP 140/82
--- NOTE | 2017-05-01 04:12 | NUR ---
INTERMITTENT RESTLESSNESS NOTED. 1:1 SITTER CONT.
[2017-05-01 05:08] LABS: BASO % 0.4 % (0.0-1.0); EOS # 0.2 10*3/uL (0.0-0.4); EOS % 1.5 % (1.0-4.0); HEMATOCRIT 38.6 % (42.0-52.0); HEMOGLOBIN 13.1 g/dl (14.0-18.0); LYMPH % 19.5 % (27.0-41.0); MEAN CELL VOLUME 96.7 fl (80.0-94.0); MEAN CORPUSCULAR HGB 32.8 pg (27.0-31.0); MEAN CORPUSCULAR HGB CONC 33.9 g/dl (33.0-37.0); MONO # 0.8 10*3/uL (0.1-1.0); MONO % 7.5 % (3.0-9.0); NEUT # 7.2 10*3/uL (2.3-7.9); NEUT % 70.9 % (47.0-73.0); PLATELET COUNT AUTOMATED 231 10*3/uL (130-400); RED BLOOD COUNT 3.99 10*6/uL (4.50-5.90); RED CELL DISTRI WIDTH 13.5 % (0-14.5); WHITE BLOOD COUNT 10.2 10*3/uL (4.8-10.8)
[2017-05-01 05:21] LABS: CREATININE 1.41 mg/dL (0.70-1.30)
--- NOTE | 2017-05-01 06:08 | NUR ---
0500 BECOMING MORE RESTLESS. FEET OVER SIDE RAIL OF BED. ATIVAN 1MG IV FOR THIS PER ORDER. WILL MONITOR. 0600 REPOSITIONED. EARLIER ATIVAN EFFECTIVE. IV FLUIDS CONT. VALADEZ PATENT. WRIST RESTRAINTS INTACT BILATERALLY. CONDITION GUARDED.
[2017-05-01 08:00] VITALS: BP 136/94
--- NOTE | 2017-05-01 09:33 | NUR ---
ADAMARIS left vm for MARIAM Duarte at [facility] in regards to what referrals they have sent out and whether or not the PASRR change of condition has been updated yet. Updated info. sent last Monday04/29/17.
--- NOTE | 2017-05-01 09:37 | NUR ---
Spoke with margot at [facility], admissions, update her as to pt. change in condition over weekend and let her know that I left for Felicia the to assure referrals have been sent out for placement and that the PASRR has been updated. She did not know the status yet. Let her know that I would need quick update for Dr. Barillas.
--- NOTE | 2017-05-01 11:10 | NUR ---
DR BEY IN TO SEE PT. UPDATED HIM ON PT'S CONDITION.
--- NOTE | 2017-05-01 11:41 | NUR ---
ADAMARIS spoke with MARIAM Duarte at [facility]. She states that if pt. stabilizes, they will take him back. If not, they are sending referrals out to [facility] and [facility] per the family.
[2017-05-01 12:00] VITALS: BP 140/88
--- NOTE | 2017-05-01 13:00 | NUR ---
SWS spoke with Felicia, at [facility], Felicia confirmed that she sent in the "change of condition" update on Monday.
[2017-05-01] MEDS ORDERED: CLEOCIN HCL300 MG PO (13:27)
--- NOTE | 2017-05-01 13:40 | NUR ---
SPOKE WITH DR HALL R/T PT DISCHARGE TO U. DR HALL STATED THAT U STAFF WAS INFORMED OF TRANSFER. I SPOKE WITH SEVERAL STAFF MEMBERS FROM [facility] AND THEY STATED THEY DO NOT KNOW ABOUT ADMISSION BUT THEY WILL START THE REFERRAL PROCESS TO SEE IF PT QUALIFIES.
--- NOTE | 2017-05-01 14:11 | NUR ---
SOKE WITH DR HALL R/T PT'S DISCHARGE TO BHU AND PT'S CONTINUED DROWSINESS. DR HALL STATED HE WILL COME UP TO SEE PT.
--- NOTE | 2017-05-01 14:26 | NUR ---
DR HALL HERE TO SEE PT. PT DID WAKE UP FOR SHORT PDS OF TIME AND DID ANSWER QUESTIONS ASKED TO HIM. PT ALSO WAS ABLE TO FOLLOW SIMPLE COMMANDS. PT REPORT GIVEN TO DORA IN BHU. SPOKE WITH PT'S DAUGHTER AND BHANU MARIO R/T PT'S CONDITION AND DISCHARGE BACK TO BHU.
--- NOTE | 2017-05-01 16:00 | NUR ---
PT DISCHARGED TO U WITH U PERSONNEL.
== END 2017-05-01 17:36 | disposition home or self-care (01) | DRG 178 ==
LOC: ICCU 22:59
PROVIDERS: Family Medicine; ADMIT Internal Medicine
DX: J69.0 Pneumonitis due to inhalation of food and vomit (principal); I50.32 Chronic diastolic (congestive) heart failure; F03.91 Unspecified dementia, unspecified severity, with behavioral disturbance; F33.3 Major depressive disorder, recurrent, severe with psychotic symptoms; I11.0 Hypertensive heart disease with heart failure; E44.1 Mild protein-calorie malnutrition; Z66 Do not resuscitate; Z51.5 Encounter for palliative care; G62.9 Polyneuropathy, unspecified; D53.9 Nutritional anemia, unspecified; K21.9 Gastro-esophageal reflux disease without esophagitis; R07.89 Other chest pain; M19.90 Unspecified osteoarthritis, unspecified site; R29.6 Repeated falls; I25.10 Atherosclerotic heart disease of native coronary artery without angina pectoris; R73.9 Hyperglycemia, unspecified; Z96.651 Presence of right artificial knee joint; E55.9 Vitamin D deficiency, unspecified; H35.30 Unspecified macular degeneration; M54.9 Dorsalgia, unspecified; G89.29 Other chronic pain; Z86.73 Personal history of transient ischemic attack (TIA), and cerebral infarction without residual deficits; Z86.711 Personal history of pulmonary embolism; Z86.718 Personal history of other venous thrombosis and embolism; Z90.49 Acquired absence of other specified parts of digestive tract; Z95.5 Presence of coronary angioplasty implant and graft; Z95.810 Presence of automatic (implantable) cardiac defibrillator; Z82.49 Family history of ischemic heart disease and other diseases of the circulatory system; Z83.3 Family history of diabetes mellitus; Z82.61 Family history of arthritis; Z79.82 Long term (current) use of aspirin; Z79.1 Long term (current) use of non-steroidal anti-inflammatories (NSAID); Z99.81 Dependence on supplemental oxygen; Z79.899 Other long term (current) drug therapy; Z68.22 Body mass index [BMI] 22.0-22.9, adult

== ENCOUNTER 2017-05-01 15:55 | Inpatient (IN) | payer MEDICARE ==
[~2017-05-01] VITALS: Ht 180.3 cm; Wt 73.6 kg
--- NOTE | ~2017-05-01 | WRIGHTHP ---
[place], [place] PATIENT HISTORY AND PHYSICAL EXAM NAME: [id number] UNIT #: [id number] ROOM: 316 DOCTOR: VIANCA HARPER MD BIRTHDATE: [birth year] DOS: 05/02/2017 INITIAL PSYCHIATRIC EVALUATION. CHIEF COMPLAINT: "Oh, yeah! Oh, yeah." HISTORY OF PRESENT ILLNESS: This is an 87-year-old white male who was readmitted to the U after a small stay at ICU due to suspected cardiac arrest and the discharge of his implanted defibrillator. The patient initially was admitted to the U from the [facility] where he was admitted there due to extreme confusion. He was initially admitted to the U after he became increasingly agitated, combative and paranoid. He believed that the staff there were out to hurt him and he eventually threw a chair through the window in an effort to try to escape. When I initially evaluated him, he was found to be depressed and also psychotic and we began initiating treatment. While on the ICU, the patient required frequent p.r.n. interventions because he was having episodic periods of agitation. He is admitted now to rule out further organic factors and attempt to stabilize on medication. PAST MEDICAL HISTORY: Remarkable for CVA, acute renal failure, anemia, coronary artery disease, placement of a cardiac defibrillator, dementia, congestive heart failure, DJD, hypertension, GERD, history of pulmonary embolism, lumbar stenosis, and macular degeneration. MENTAL STATUS: The patient's mental status is somewhat limited due to his level of somnolence. He responded, but most often it was inappropriate. He tended to still ramble. There was no agitation directed towards me. There was no verbal aggression either. Memory seems poor. DIAGNOSIS: Major depression, recurrent with psychotic features. PLAN: I discussed this case at length with Dr. Richard and then later with the patient's daughter, Pat. There is some concern regarding his medical status and at this point in time given his decline, I will discontinue all of his PRNs, his Remeron and his nighttime dose of Neurontin in an order to wake him up. The patient had been on Exelon previously, will go ahead and increase this from 4.6 to 9.5 mg a day as this will not adversely affect his mental status. Dr. Richard is going to order a CAT scan of his head to rule out the possibility of cerebrovascular accident. We will recheck some blood work as well to monitor him and continue to monitor his overall medical and psychiatric status. [place], [place] PATIENT HISTORY AND PHYSICAL EXAM NAME: DARIO HUNT UNIT #: [id number] ROOM: [facility] DOCTOR: VIANCA HARPER MD BIRTHDATE: [birth year] VIANCA HARPER MD CM:HISPHYS:PATIENT HISTORY AND PHYSICAL EXAMINATION 1012 VIANCA HARPER MD 05/02/17 1012 interface
--- NOTE | 2017-05-01 14:30 | NUR ---
VERBAL CONSENTS FOR ADMISSION AND MEDICATIONS RECIEVED VIA TELEPHONE FROM PT'S DAUGTHER/HEALTH CARE BAHNU HUNT. WITNESSED BY 2ND RN ZULLY.
--- NOTE | 2017-05-01 15:00 | NUR ---
ADMISSION ORDERS RECIEVED AT THIS TIME FROM DR. HARPER. MADE AWARE PT HAD BEEN GIVEN ATIVAN THROUGHOUT THE NIGHT AND HAS REMAINED DROWSY THROUGHOUT THE DAY, ALL PO MEDS HELD BY ICU NURSE D/T DROWSINESS.
[~2017-05-01 15:55] MED LIST changes: +CLEOCIN HCL300 MG PO
--- NOTE | 2017-05-01 16:10 | NUR ---
DARIO HUNT a 87 year old M admitted via bed from the [facility] as a voluntary BY POA admission. Arrived on unit at 1610. ALLERGIES: RAGWEED. Vital signs are: 97.5-99-21-130/72-97% ROOM AIR. The following forms WERE REVIEWED WITH THE POA, CONSENTS OBTAINED AND WITNESSED FROM 2ND RN Sukhdeep MATIAS with stated understanding: Authorization For The Release of Medical Information, Clothing List, Consent to Voluntary Admission and Hospitalization, Consent and Release Forms/Receipt of Rights, Acknowledgement of Advance Directive Information, Behavioral Health Consent Form, and Informed Consent of Medications. Admitted under the services of Dr. MEREDITH MARTINEZ,[facility]. A search was conducted and hazardous articles were removed. Client was oriented to the unit. RINA FRIEDMAN
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
[2017-05-01 17:26] VITALS: BP 130/72
--- NOTE | 2017-05-01 17:29 | NUR ---
CALL PLACED TO [phone] FOR HOSPITALIST NUMBER ONE, SPOKE TO DR. BILLY, MADE AWARE THIS PT HAD BEEN TRANSFERED BACK TO [facility] FROM [facility] AND NEEDED A NEW CONSULT FOR MEDICAL MANAGEMENT, DR. BILLY STATES TO PLACE CONSULT UNDER DR. UNDERWOOD.
--- NOTE | 2017-05-01 17:40 | NUR ---
CALL RECIEVED FROM DR. BILLY, REVIEWED MEDICATIONS, ALSO MADE AWARE PT HAD BEEN DX WITH POSSIBLE ASPIRATION PNEUMONIA AND WAS RECOMMENDED THAT HE BE EVALUATED BY SPEECH IN ICCU, HOWEVER; SPEECH EVAL WAS NOT DONE D/T PT'S CURRENT MENTAL STATUS, QUESTIONED WHICH DIET DR. BILLY WOULD LIKE PT ON, DR. BILLY STATES TO KEEP PT NPO UNTIL SPEECH CAN EVALUATE. ALSO SPOKE TO DR. BILLY REGARDING PT'S VALADEZ CATHETER AND IV, DR. BILLY STATES TO DISCONTINUE BOTH THE CATHETER AND IV. WITNESSED BY 2ND RN ZULLY.
--- NOTE | 2017-05-01 17:43 | NUR ---
[facility], PT UNABLE TO STAND ON SCALE AT THIS TIME.
[2017-05-01 18:21] VITALS: BP 130/72
--- NOTE | 2017-05-01 18:33 | NUR ---
SUICIDE RISK ASSESSMENT AND DEPRESSION SCALE UNABLE TO BE COMPLETED D/T PT'S INCREASED CONFUSION AND DROWSINESS AT THIS TIME.
--- NOTE | 2017-05-01 18:38 | NUR ---
SHIFT CHART CHECK COMPLETED.
[2017-05-01 20:04] VITALS: BP 138/86
--- NOTE | 2017-05-01 20:30 | NUR ---
CALLED DR BILLY & INFORMED HIM THAT PT IS NPO UNTIL HE CAN HAVE HIS SPEECH EVALUATION & IS NOT GETTING FLUIDS. HE STATED TO GIVE PT NORMAL SALINE 125CC/HOUR CONTINOUS. ORDERS HEARD BY SECOND RN CARLOS WILSON.
--- NOTE | 2017-05-01 23:00 | NUR ---
ALL PO MEDS HELD PT IS NPO. IV FLUIDS WERE STARTED PER DR VIERA ORDER & VALADEZ CATH REMOVED PER NATALEE VIERA ORDER. PT CONFUSED. APPEARS TO BE RESPONDING TO AUDITORY & VISUAL HALLUCINATIONS HE HAS PICKED & REACHED AT THE AIR & TALKS OUT TO UNSEEN PERSONS. URINARY OUTPUT PRIOR TO CATH BEING REMOVED WAS 300 CC.
--- NOTE | 2017-05-02 00:10 | NUR ---
24 HR chart check completed.
--- NOTE | 2017-05-02 00:52 | NUR ---
PT HAS CONTINUED TO BE RESTLESS & NAPPING INTERMITTENTLY. HAS THREATENED TO GIVE STAFF A BLACK EYE. INCREASED IRRITABILITY, ALSO THREATENED TO HIT & KICK STAFF & ATTEMPTED TO KICK AT STAFF. MEDICATED WITH ATIVAN 1 MG IM @ 46.
--- NOTE | 2017-05-02 06:31 | NUR ---
ATIVAN HAS BEEN EFFECTIVE & PT SLEPT PAST 129. INCONTINENT OF A VERY LARGE BM & WAS INCONTINENT OF URINE. SECOND BAG OF IV FLUID INFUSING. REMAINS NPO PER DR LUX.
[2017-05-02 08:00] VITALS: BP 150/88
--- NOTE | 2017-05-02 08:26 | NUR ---
MUCUS MEMBRANES DRY. TENTING TO BOTH HANDS NOTED. SLIGHT LEFT SIDED MOUTH DROOPING NOTED. IN TO ASSESS PATIENT WELL. CALL PLACED TO REQUESTING MEDICAL DOCTOR TO ASSESS PATIENT.
--- NOTE | 2017-05-02 08:30 | NUR ---
2ND CALL PLACED TO REQUESTING MEDICAL DOCTOR TO ASSESS PATIENT.
--- NOTE | 2017-05-02 08:36 | NUR ---
ON UNIT TO ASSESS PATIENT AT THIS TIME.
--- NOTE | 2017-05-02 09:20 | NUR ---
MADE AWARE OF BP AND APICAL PULSE OF 111. UNABLE TO ADMINISTER AM MEDICATION D/T NPO STATUS AND INCREASED DROWSINESS. AWAITING SPEECH THERAPY TO EVMD AT THIS TIME. NNO RECEIVED FROM AT THIS TIME.
--- NOTE | 2017-05-02 10:00 | NUR ---
AND MADE AWARE PER SAIRA DOBBINS, NPO STATUS CONTINUES UNTUL FURTHER NOTICE, PATIENT FAILED SWALLOW EVAL. STATES WILL BE BACK TOMORROW 05/03/17 TO RE-EVALUATE PATIENT.
--- NOTE | 2017-05-02 10:00 | NUR ---
SPEECH PATHOLOGY Bedside swallow eval. completed as per orders. Patient was tired and with limited response. He had just completed a medical procedure from which he was agitated, and a physical therapy evaluation prior to this assessment. He was seated upright in chair. Patient is currently NPO until completion of this assessment. Patient was not able to follow commands for oral assessment at this time. He was noted to display only a few teeth, which were in poor condition. He was able to maintain labial closure at rest and facial symmetry was observed. Patient was challenged with pureed consistency (applesauce) and sips of water by cup. Anterior loss of most of the water was displayed. A severe delay in swallow initation was observed with puree. Recommend patient remain NPO at this time. Recommend follow up therapy for continued assessment as reports indicate that he was tolerating a diet with no difficulty prior to his recent transfer off the U. Results and rin. were shared with his nurse who verbalized understanding. Refer to report in [facility] for further info. Thank you for this referral. SAIRA MOORE MSCCC-PROPERTIES SUPERVISOR
[2017-05-02 10:39] LABS: ABG BASE EXCESS -1.2 mmol/L (-2.0-2.0); ABG HCO3 20.8 mmol/l (22-26); ABG O2 SATURATION 93.4 % (95-97); ARTERIAL BLOOD GAS PH 7.482 (7.35-7.45); ARTERIAL BLOOD GAS PO2 63.2 mmHg (80-90)
--- NOTE | 2017-05-02 10:45 | NUR ---
PHYSICAL THERAPY Physical Therapy Evaluation completed this date. See eval document for complete details. Will begin PT intervention to address the impairments of muscle weakness, decreased functional mobility I, and inability to ambulate. Recommend SNF on d/c pending improvement with inpnt PT POC[place] [id number] based on chart review and PT eval. Sada Mera, PT
[2017-05-02 10:59] LABS: BASO % 0.3 % (0.0-1.0); EOS # 0.1 10*3/uL (0.0-0.4); EOS % 0.7 % (1.0-4.0); HEMATOCRIT 39.1 % (42.0-52.0); HEMOGLOBIN 13.2 g/dl (14.0-18.0); LYMPH # 1.5 10*3/uL (1.3-4.4); LYMPH % 13.3 % (27.0-41.0); MEAN CELL VOLUME 96.3 fl (80.0-94.0); MEAN CORPUSCULAR HGB 32.5 pg (27.0-31.0); MEAN CORPUSCULAR HGB CONC 33.8 g/dl (33.0-37.0); MEAN PLATELET VOLUME 9.9 fl (9.6-12.3); MONO # 1.1 10*3/uL (0.1-1.0); MONO % 9.2 % (3.0-9.0); NEUT # 8.7 10*3/uL (2.3-7.9); PLATELET COUNT AUTOMATED 233 10*3/uL (130-400); RED BLOOD COUNT 4.06 10*6/uL (4.50-5.90); RED CELL DISTRI WIDTH 13.3 % (0-14.5); WHITE BLOOD COUNT 11.4 10*3/uL (4.8-10.8)
--- NOTE | 2017-05-02 11:06 | NUR ---
SPOKE WITH AND NOTIFIED THAT WE CANNOT ADMINISTER IV MEDICATIONS, STATES WILL CHANGE ORDER FOR SOLU MEDROL TO IM. CALLED AND NOTIFIED OF ABG RESULTS, STATES TO PUT PT ON 2L O2 NC AT THIS TIME R/T ABG RESULTS. PT PLACED ON 2L OC VIA NC AT THIS TIME.
[2017-05-02 11:27] LABS: ALBUMIN 3.2 gm/dl (3.1-4.5); ALKALINE PHOSPHATASE 90 U/L (45-117); BUN 12 mg/dl (7-24); CHLORIDE 111 mmol/L (98-107); CREATININE 1.06 mg/dL (0.70-1.30); POTASSIUM 3.5 mmol/L (3.5-5.1); SGOT/AST 22 IU/L (3-35); SGPT/ALT 19 U/L (12-78); SODIUM 141 mmol/L (136-145); TOTAL PROTEIN 6.7 gm/dL (6.4-8.2)
--- NOTE | 2017-05-02 12:27 | NUR ---
FENTANYL PATCH ADMINISTERED AND PLACE ON LEFT UPPER BACK AT THIS TIME.
--- NOTE | 2017-05-02 13:30 | NUR ---
MADE AWARE IV TO RIGHT AC INFILTRATED AT THIS TIME AND IS RED, WARM, AND EDEMATOUS. WARM, MOIST COMPRESS APPLIED. MADE AWARE OF WBC COUNT. NNO AT THIS TIME.
--- NOTE | 2017-05-02 13:33 | NUR ---
Reading/Reminiscing Patient was unable to attend group,patient was getting medical attention and testing
--- NOTE | 2017-05-02 15:19 | NUR ---
MADE AWARE IV ACCESS WAS LOST AFTER MULTIPLE ATTEMPTS MADE BY 3 DIFFERENT NURSES. STATES SHE WILL HAVE AN ICU NURSE ATTEMPT. AWAITING ICU NURSE AT THIS TIME.
[2017-05-02 17:14] VITALS: BP 159/47
--- NOTE | 2017-05-02 17:15 | NUR ---
AT BEDSIDE TO ASSESS PATIENT. MADE AWARE OF MOST RECENT VITALS INCLUDING ELEVATED HEART RATE. NNO AT THIS TIME. AWAITING ULTRASOUND TO INSERT NEW IV LINE.
--- NOTE | 2017-05-02 17:24 | NUR ---
PATIENT IS DROWSY THIS SHIFT WITH INCREASING ALERTNESS. ORIENTED TO SELF ONLY WITH ACUTE CONFUSION NOTED. ST/LT MEMORY DEFICITS. SPEECH IS SLURRED AND GARBLED, WELL , NONSENSICAL. NO HALLUCINATIONS OR BEHAVIORS NOTED. HAS BEEN LAYING IN BED OR SHITAL CHAIR ALL DAY. Q2 HR TURN AND REPOSTITIONING MAINTAINED FOR COMFORT AND PRESSURE RELIEF. DAUGHTER IN THIS AFTERNOON FOR VISIT AND UPDATED ON PATIENT STATUS. POA CALLED AND SPOKE WITH ANOTHER RN THIS EVENING AND UPDATED ON PT STATUS. FALL PRECAUTIONS MAINTAINED THIS SHIFT. BED/BODY ALARMS IN PLACE AND FUCTIONING PROPERLY. IV INFILTRATION SITE NOTED WITH DECREASING REDNESS, EDEMA, AND NO LONGER WARM TO TOUCH. O2 AT 2L VIA NC IN PLACE. PATIENT OBSERVED TAKING O2 OFF AND REQUIRES STAFF TO REAPPLY NC AT TIMES. GRANDDAUGHTER IN AT THIS TIME FOR VISIT. RESPIRATIONS EASY AND EVEN. WILL CONTINUE WITH Q15 MIN OBSERVATION CHECKS PER ORDERS. AWAITING ULTRASOUND GUIDED IV PLACEMENT.
--- NOTE | 2017-05-02 18:02 | NUR ---
NOTIFIED OF ABNORMAL EKG RESULTS AND HR RANGING BETWEEN 120'S, 130'S AND 150'S. STATES WILL COME TO UNIT.
--- NOTE | 2017-05-02 18:04 | NUR ---
ON UNIT TO ASSESS EKG RESULTS AT THIS TIME.
--- NOTE | 2017-05-02 18:15 | NUR ---
PER PATIENT IS TO BE DISCHARGE TO MEDICAL FLOOR FOR AFIB RVR AND TACHYCARDIA. NURSING BUTCHER ALL ROUND, AMBER, NOTIFIED. NOTIFIED, DISCHARGE MEDICATION ORDERS WRITTEN DOWN AND READ BACK TO DISCONTINUE EXELON PATCH.
--- NOTE | 2017-05-02 18:29 | NUR ---
FABIANO DRUMMOND, UPDATED ON PT STATUS AND THAT PATIENT IS BEING DISCHARGED TO MEDICAL UNIT TO ROOM 523.
--- NOTE | 2017-05-02 18:38 | NUR ---
SW PROVIDED SUPPORT FOR PT WHILE NURSE TRIED TO GET AN IV STARTED. PT WAS IN PAIN AND WAS STRIKING OUT. NURSE UNABLE TO GET IV STARTED DUE TO PT BEING DEHYDRATED AND FAILUING SWALLOW EVAL.
--- NOTE | 2017-05-02 18:41 | NUR ---
NURSE TO NURSE GIVEN TO VIKTOR ARCEO.
--- NOTE | 2017-05-02 19:12 | NUR ---
LOCKBOX PAPER FAXED TO 5TH FLOOR AT THIS TIME.
== END 2017-05-02 18:50 | disposition short-term general hospital (02) | DRG 885 ==
LOC: 3N 15:55
PROVIDERS: Internal Medicine; Student in an Organized Health Care Education/Training Program; ADMIT Psychiatry & Neurology Psychiatry
DX: F33.3 Major depressive disorder, recurrent, severe with psychotic symptoms (principal); J69.0 Pneumonitis due to inhalation of food and vomit; I50.33 Acute on chronic diastolic (congestive) heart failure; E87.3 Alkalosis; R06.89 Other abnormalities of breathing; E44.1 Mild protein-calorie malnutrition; G45.9 Transient cerebral ischemic attack, unspecified; F01.51 Vascular dementia, unspecified severity, with behavioral disturbance; E55.9 Vitamin D deficiency, unspecified; R09.02 Hypoxemia; D53.9 Nutritional anemia, unspecified; R73.9 Hyperglycemia, unspecified; I48.0 Paroxysmal atrial fibrillation; I11.0 Hypertensive heart disease with heart failure; M54.9 Dorsalgia, unspecified; H35.30 Unspecified macular degeneration; G89.29 Other chronic pain; M19.90 Unspecified osteoarthritis, unspecified site; I25.10 Atherosclerotic heart disease of native coronary artery without angina pectoris; Z96.651 Presence of right artificial knee joint; K21.9 Gastro-esophageal reflux disease without esophagitis; Z86.711 Personal history of pulmonary embolism; Z86.73 Personal history of transient ischemic attack (TIA), and cerebral infarction without residual deficits; Z95.810 Presence of automatic (implantable) cardiac defibrillator; Z86.718 Personal history of other venous thrombosis and embolism; Z90.49 Acquired absence of other specified parts of digestive tract; Z95.1 Presence of aortocoronary bypass graft; Z82.49 Family history of ischemic heart disease and other diseases of the circulatory system; Z83.3 Family history of diabetes mellitus; Z82.61 Family history of arthritis; Z91.048 Other nonmedicinal substance allergy status; Z79.899 Other long term (current) drug therapy; Z79.82 Long term (current) use of aspirin; Z68.23 Body mass index [BMI] 23.0-23.9, adult

== ENCOUNTER 2017-05-02 18:35 | Inpatient (IN) | payer MEDICARE ==
[~2017-05-02] VITALS: Ht 177.8 cm; Wt 73.1 kg
--- NOTE | ~2017-05-02 | CON ---
[place], [place] REPORT OF CONSULTATION NAME: DARIO HUNT UNIT #: [id number] ROOM: 523 DOCTOR: VIANCA HARPER MD BIRTHDATE: [birth year] DOS: 05/04/2017 CHIEF COMPLAINT: "Can you help me doctor, can you help me get out of here. I need to go downtown and get my watch, how far is it." HISTORY OF PRESENT ILLNESS: This is an 87-year-old white male who was initially admitted to the [facility] and has been transferred off the [facility] on 2 separate occasions. He was initially admitted to the [facility] after a major incident at the long-term care facility that he was placed at. He was sent to the [facility] and he became increasingly verbally and physically combative. He became so combative that at one point in time, he picked up a chair and threw it through his window in an effort to escape. Since he has been to the [facility], he has had issues with atrial fibrillation with rapid ventricular response and has had to be transferred off the unit on 2 separate occasions. Currently, nurses report that he remains episodically confused and at times agitated. He is hard to redirect and at times becomes belligerent. MENTAL STATUS EXAMINATION: This morning, he is alert and oriented to self. He at times does voice that he is in the hospital and other times he feels he is at home. His responses tend to be short and simple and at times is nonsensical. He often times does not respond appropriate to the question that is asked of him. He became somewhat verbally irritated towards me, but then quickly quieted and redirected. 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 PLAN: I will go ahead and check a prolactin level as well as a vitamin B12 level. An old B12 level reviewed in chart was low normal. I want to make certain that he further which could be contributing to his dementia. I am checking the prolactin level just because a past history of a CVA. During the period of time that I was talking to him, he became unresponsive and I noticed as he did so, his right hand began to jerk and then he later woke up. Complicating matters is the fact that nurses just did give him a p.r.n. Ativan, which could be causing the sedation. I will go ahead and restart him on a mood stabilizer utilizing Depakote 250 mg 3 times daily to try to decrease his mood lability and impulsivity. I will also treat the dementia with Exelon patch 4.6 mg daily. At this point in time, they are switching him from IV Cardizem to oral when she felt that he is medically stable. If his agitation and mood lability persist, I would be happy to take him back to the [facility] for further stabilization and to assist with placement. [place], [place] REPORT OF CONSULTATION NAME: DARIO HUNT UNIT #: [id number] ROOM: 523 DOCTOR: VIANCA HARPER MD BIRTHDATE: [birth year] VIANCA HARPER MD CM:CONSTR:REPORT OF CONSULTATION 1025 05/05/17 0330 interface
[2017-05-02 19:00] VITALS: BP 159/54
--- NOTE | 2017-05-02 19:00 | NUR ---
A 87, admitted to , under the services of TAMERA Maier DO with a diagnosis of AFIB RVR. Chief complaint is AFIB. Patient arrived via BED from [facility]. Monitor applied. Initial assessment completed. Vital signs taken and recorded. TAMERA MAIER DO notified of admission to the unit. Orders received. See assessment for past medical history, medications and allergies. Patient and/or family oriented to unit. [facility] Clothing/patient valuable form completed. JENIFER ALBERTS
--- NOTE | 2017-05-02 19:31 | NUR ---
DR. JACINTO CALLED AND NOTIFIED OF INCREASED HR. THE PATIENT HAS BEEN STEADY 120'S SINCE ON THE FLOOR AND WHILE IN THE BHU. THE DR. NIKOLAI MONTAÑO GTT AT 5ML WITH A 5MG BOLUS TO START. HE ALSO ORDERED A CONSULT FOR CARDIOLOGY AND A EKG NOW. THE PATIENT DENIES CP, DENIES SOB, AND THE RATE IS AFIB AT THIS TIME.
[2017-05-02 20:00] VITALS: BP 113/69
--- NOTE | 2017-05-02 20:49 | NUR ---
ANSWERING SERVICE WAS NOTIFIED OF DR. COOL CONSULT. RESPONSE OF NOTIFICATION WAS OKAY ILL LET HIM KNOW. VIOLETA KAUR
[2017-05-03] VITALS (10 sets, daily range): BP systolic 70–124; BP diastolic 37–72
--- NOTE | 2017-05-03 | NUR ---
PATIENT SLEEPING. NO SXS OF DISTRESS AT THIS TIME. RESPIRATIONS EASY/REG. CARDIZEM DRIP MAINTAINED PER ORDER. CALL LIGHT IN REACH.
[2017-05-03 06:36] LABS: BASO % 0.1 % (0.0-1.0); EOS % 0.1 % (1.0-4.0); HEMATOCRIT 38.3 % (42.0-52.0); HEMOGLOBIN 12.7 g/dl (14.0-18.0); LYMPH # 1.5 10*3/uL (1.3-4.4); MEAN CELL VOLUME 97.7 fl (80.0-94.0); MEAN CORPUSCULAR HGB 32.4 pg (27.0-31.0); MEAN CORPUSCULAR HGB CONC 33.2 g/dl (33.0-37.0); MEAN PLATELET VOLUME 10.3 fl (9.6-12.3); MONO # 0.9 10*3/uL (0.1-1.0); MONO % 9.2 % (3.0-9.0); NEUT # 7.6 10*3/uL (2.3-7.9); NEUT % 75.2 % (47.0-73.0); PLATELET COUNT AUTOMATED 238 10*3/uL (130-400); RED BLOOD COUNT 3.92 10*6/uL (4.50-5.90); RED CELL DISTRI WIDTH 13.5 % (0-14.5); WHITE BLOOD COUNT 10.1 10*3/uL (4.8-10.8)
--- NOTE | 2017-05-03 06:49 | NUR ---
RESPIRATIONS EASY/REGULAR. NO SXS OF DISTRESS AT THIS TIME. CARDIZEM DRIP MAINTAINED PER ORDER. CALL LIGHT IS IN REACH.
[2017-05-03 07:09] LABS: BUN 17 mg/dl (7-24); CHLORIDE 108 mmol/L (98-107); CREATININE 1.12 mg/dL (0.70-1.30); MAGNESIUM 2.4 mg/dL (1.5-2.1); PHOSPHOROUS 2.9 mg/dL (2.5-4.9); SODIUM 143 mmol/L (136-145)
[2017-05-03 07:21] LABS: FREE T4 0.96 ng/dl (0.76-1.46)
--- NOTE | 2017-05-03 07:53 | NUR ---
PT RESTING IN BED, EYES CLOSED. NO DISTRESS NOTED. CARDIZEM GTT RUNNING. WILL MONITOR
--- NOTE | 2017-05-03 09:00 | NUR ---
MARIAM spoke with Mamta Soto about referral. [facility] can not take Pt NPO. Update facility when not NPO, will re-evaluate then.
--- NOTE | 2017-05-03 09:14 | NUR ---
CARDIZEM GTT STOPPED , PER DR MOSS ORDER
--- NOTE | 2017-05-03 10:18 | NUR ---
SPEECH PATHOLOGY Orders for bedside swallow eval. received and chart review completed. Patient is known to this clinician as he was seen yesterday while on BHU for attempted swallow eval. Patient was recommended NPO. This morning patient was sound asleep in bed and did not arouse to safely attempt any po feeding. This assessment will be attempted again later this date. Thank you for this referral. SAIRA MOORE MS CCC-TEACHER MUSIC
--- NOTE | 2017-05-03 10:40 | NUR ---
PT MEDICATED WITH ZOFRAN FOR C/O NAUSEA. SNEHA MONITOR
--- NOTE | 2017-05-03 10:40 | NUR ---
PT HEART RATE 140S . CARDIZEM HOOKED BACK UP AT 5MG/HR
--- NOTE | 2017-05-03 10:45 | NUR ---
PT COMBATIVE, TRYING TO GET OUT OF BED. DR BEY, DR HALL AND DR THAKUR NOTIFIED , NEW ORDERS RECIEVED
--- NOTE | 2017-05-03 11:02 | NUR ---
IV ATIVAN GIVEN ORDERED FOR ANXIETY, COMBATIVE . WILL MONITOR
--- NOTE | 2017-05-03 11:53 | NUR ---
DR HARPER NOTIFIED OF CONSULT
--- NOTE | 2017-05-03 12:15 | NUR ---
PT HR NOW 80S.FAMILY AT BEDSIDE
--- NOTE | 2017-05-03 12:17 | NUR ---
Faxed medical updates to Mayte @ [place] per her request.
--- NOTE | 2017-05-03 13:12 | NUR ---
PT RESTING IN CHAIR. EYES CLOSED. ATIVAN APPEARS EFFECTIVE, WILL MONITOR
--- NOTE | 2017-05-03 13:29 | NUR ---
SPEECH THERAPY IN WITH PT
--- NOTE | 2017-05-03 13:59 | NUR ---
SPEECH PATHOLOGY Bedside swallow eval. completed this date. Patient was alert with significant confusion. He was sitting upright in bedside chair. He was assessed with pureed consistency and thin liquid. Solid was attempted however patient politely refused, stating he can't chew. Patient displayed safe swallowing of purees and thin liquids. He swallowed in a timely manner with no residue, cough or wet vocal quality. Recommend pureed diet and thin liquids. Recommend follow up therapy focusing on safe swallow strategies and education to ensure safe tolerance of diet. Results and rin. were shared with patient and his nurse and they verbalized understanding. Refer to report in [employer] for further info. Thank you for this referral. SAIRA MOORE MSCCC-INFORMATION AND DATA ARCHITECT ANALYST
--- NOTE | 2017-05-03 18:26 | NUR ---
PT RESTING IN BED, NO DISTRESS NOTED. FAMILY AT BEDSIDE
--- NOTE | 2017-05-03 19:43 | NUR ---
Patient medicated with prn ativan as ordered for sxs of anxiety and restlessness. He is lying in bed, respirations easy/reg. on 2L nc. cardizem drip maintained per order. will monitor.
--- NOTE | 2017-05-03 20:57 | NUR ---
SPOKE TO DR JACINTO ABOUT PATIENTS LOW BP. 72/37 AUTOMATED CUFF AND 70/48 MANUAL. ORDERS TO STOP CARDIZEM DRIP UNTIL SYSTOLIC IS OVER 105.
--- NOTE | 2017-05-03 21:34 | NUR ---
DR JACINTO WAS NOTIFIED OF RECHECK BP OF . HE ORDERED TO LEAVE THE DRIP OFF FOR NOW.
--- NOTE | 2017-05-03 22:40 | NUR ---
PATIENT SLEEPING. NO SXS OF DISTRESS. CARDIZEM DRIP REMAINS OFF PER DR JACINTO ORDERS. HR CURRENTLY 78 PACED WITH 100% CAPTURE.
--- NOTE | 2017-05-03 23:51 | NUR ---
PATIENT SLEEPING. HR 76 W/ 100% CAPTURE PER CM. NO SXS OF DISTRESS AT THIS TIME. RESPIRATIONS EASY/REGULAR. CALL LIGHT IS IN REACH. SITTER 1:1 MAINTAINED.
[2017-05-04] VITALS: BP 92/57
--- NOTE | 2017-05-04 02:33 | NUR ---
SLEEPING. HR 76 PACED 100% CAPTURE PER CM.
--- NOTE | 2017-05-04 03:11 | NUR ---
PATIENT MEDICATED WITH PRN ATIVAN ORDERED FOR SXS OF RESTLESSNESS, TRYING TO CLIMB OUT OF BED, AND BEING COMBATIVE. RESPIRATIONS EASY/REGULAR. HR 78 PACED 100% CAPTURE PER CM. WILL MONITOR
--- NOTE | 2017-05-04 04:15 | NUR ---
EARLIER ATIVAN APPEARS EFFECTIVE. PATIENT RESTING QUIETLY. HR 79 100% CAPTURE PER CM. RESPIRATIONS EASY/REGULAR. 1:1 SITTER MAINTAINED.
[2017-05-04 08:00] VITALS: BP 137/70
--- NOTE | 2017-05-04 08:45 | NUR ---
ARIANA from [facility] about referral. Sw returned call and line was busy.
--- NOTE | 2017-05-04 09:24 | NUR ---
SPEECH PATHOLOGY Patient was seen for treatment this am during breakfast meal. Patient was seated upright in bed. He was fed purees and thin liquid. Patient has a 1:1 aide at current time due to reported combativeness and restlessness. He reportedly had been given ativan earlier. He was tired but able to respond appropriately and consume his meal. He was slow to eat but with food and liquids he displayed a timely swallow with no residue, cough or wet vocal quality. Recommend he remain on present diet at this time for safety. Recommend universal safe swallow strategies such as upright positioning for meals, small bites/sips and feeding slowly. Continue therapy plan. SAIRA MOORE MSCCC-TUNNEL FORM PLACING SUPERVISOR SAIRA MOORE MSCCC-TUNNEL FORM PLACING SUPERVISOR
--- NOTE | 2017-05-04 10:14 | NUR ---
PHYSICAL THERAPY Possible transfer back to [facility]. Will check status at a later date. Thank you for this referral. Lizbeth Barreto,PT
[2017-05-04 12:00] VITALS: BP 83/54
[2017-05-04 16:00] VITALS: BP 104/58
--- NOTE | 2017-05-04 16:15 | NUR ---
MARIAM SPOKE WITH JACLYN MASTER KEENE FOR [facility]. ZOIE IS INTERESTED IN PT BUT HE IS NOT STABLE. JACLYN WILL CONTINUE TO KE P IN CONTACT.
[2017-05-04 20:00] VITALS: BP 116/68
[2017-05-05] VITALS: BP 90/51
--- NOTE | 2017-05-05 00:32 | NUR ---
24 HR chart check completed.
[2017-05-05 08:00] VITALS: BP 138/78
--- NOTE | 2017-05-05 10:54 | NUR ---
SPEECH PATHOLOGY Treatment was attempted this am. Patient was sleeping and his 1:1 aide was present. She reported that he has been sleeping all morning and has refused breakfast upon all attempts. She also reported that he is scheduled to return to [facility] today. His breakfast tray was present. As he was sleeping, treatment was withheld. If patient returns to [facility], new orders will be needed for treatment to continue. SAIRA MOORE MSCCC-PERIODICALS LIBRARY ASSISTANT
--- NOTE | 2017-05-05 11:28 | NUR ---
PT WAS FOUND CLIMBING OVER SIDERAILS, WHILE BED ALARM WAS ALARMING. PT WAS WITNESSED BY ANOTHER STAFF MEMBER WHO WENT TO CATCH PT AND ASSISTED PT TO FLOOR ON PT'S KNEES. UPDATED DR HALL, STATED THEY WERE LIKELY GOING TO REINSTATE PT'S 1:1 SITTER. FALL RISK ASSESSMENT UPDATED. NO OBVIOUS INJURIES NOTED. ROBBIN LIMA NOTIFIED.
--- NOTE | 2017-05-05 11:48 | NUR ---
PT DOWN FOR X-RAY OF KNEES AT THIS TIME.
[2017-05-05 12:00] VITALS: BP 133/83
--- NOTE | 2017-05-05 12:01 | NUR ---
PHYSICAL THERAPY APtient with testing , will attempt at a later time or date. Thank you for this referral. colin campbell,PT
--- NOTE | 2017-05-05 12:06 | NUR ---
PT VERY CONFUSED AND BEING COMBATIVE, SPITTING ON STAFF MEMBERS. MEDICATED WITH IV ATIVAN PER ORDER. WILL MONITOR FOR EFFECTIVENESS.
[2017-05-05] MEDS ORDERED: RIVASTIGMINE1 EACH T (12:27)
--- NOTE | 2017-05-05 12:30 | NUR ---
CALL PLACED TO POA AT THIS TIME TO UPDATE ON PT'S STATUS AND PLAN FOR TRANSFER. NO ANSWER AT THIS TIME. VOICEMAIL LEFT.
--- NOTE | 2017-05-05 13:13 | NUR ---
DR HALL NOTIFIED THAT PT CONTINUES TO REMOVE SUPERVISOR TYPE PHOTOGRAPHY BECOMING VERY AGITATED. STATES THEY WILL D/C HEART MONITOR.
[2017-05-05] MEDS ORDERED: CLEOCIN HCL300 MG PO (13:16)
[2017-05-05] MEDS ORDERED: ASPIRIN325 M2 PO (13:16)
--- NOTE | 2017-05-05 13:19 | NUR ---
PT HOLDING HEAD AND APPEARING THOUGH HE HAS A HEADACHE. MEDICATED WITH NORCO, WILL MONITOR FOR EFFECTIVENESS.
--- NOTE | 2017-05-05 13:49 | NUR ---
CALLED [facility] AT THIS TIME, THEY STATE DR HARPER STATED THIS PT WASN'T COMING BACK HIS BEHAVIORS HAVE IMPROVED. SPOKE WITH DR HALL WHO HAS STATED THE PT IS TO GO BACK TO [facility], HIS BEHAVIOR HASN'T IMPROVED AND PT IS STILL QUITE CONFUSED AND AGITATED. SPOKE WITH [facility] WHO SAID THEY HAD TO CALL DR HARPER AND SEE IF THEY EVEN HAVE AN AVAILABLE BED.
--- NOTE | 2017-05-05 15:15 | NUR ---
SPOKE WITH ZURI FROM [facility], STATES WE NEED TO OBTAIN CONSENT FROM PT'S POA FOR ADMISSION TO [facility]. CALL PLACED TO PT'S POA FABIANO WHICH IS PT'S DAUGHTER, CALL WENT STRAIGHT TO VOICEMAIL, CALLED PT'S OTHER DAUGHTER TO SEE IF THERE IS ALTERNATE METHOD TO REACH FABIANO, STATES SHE WOULD TEXT HER SISTER AND HAVE HER CALL IN.
--- NOTE | 2017-05-05 15:44 | NUR ---
DAUGHTER FABIANO DRUMMOND CALLED BACK AT THIS TIME, STATING SHE GIVES AUTHORIZATION FOR PT'S TRANSFER TO [facility], DAUGHTER ASKING WHY SHE WASN'T NOTIFIED OF PT'S FALL. UPDATED THAT I DID PLACE A CALL TO HER EARLIER TO UPDATE ON FATHERS STATUS AND PLAN FOR DISCHARGE TO [facility], BUT PHONE HAD WENT STARIGHT TO VOICEMAIL. MESSAGE WAS LEFT FOR HER TO CALL ME BACK REGARDING HER FATHER, NO CALL RETURNED UNTIL SHE HAD SPOKEN WITH [facility].
--- NOTE | 2017-05-05 15:55 | NUR ---
Discharge instructions reviewed with patient/family. Patient receptive and verbalizes understanding. Follow-up care arranged. Written instructions given to patient/family. Report given to Etta from U, updated on pt's status and pt's witness fall today. IV sites removed per her request. Pt trasnported to U via chair, accompanied by staff. ANA MORALES
== END 2017-05-05 15:55 | disposition home or self-care (01) | DRG 178 ==
LOC: 5E 18:35
PROVIDERS: Internal Medicine; ADMIT Internal Medicine
DX: J69.0 Pneumonitis due to inhalation of food and vomit (principal); R65.10 Systemic inflammatory response syndrome (SIRS) of non-infectious origin without acute organ dysfunction; I11.0 Hypertensive heart disease with heart failure; I42.9 Cardiomyopathy, unspecified; F33.3 Major depressive disorder, recurrent, severe with psychotic symptoms; I50.32 Chronic diastolic (congestive) heart failure; G30.9 Alzheimer's disease, unspecified; F02.81 Dementia in other diseases classified elsewhere, unspecified severity, with behavioral disturbance; I67.82 Cerebral ischemia; E44.1 Mild protein-calorie malnutrition; I48.0 Paroxysmal atrial fibrillation; Z66 Do not resuscitate; D53.9 Nutritional anemia, unspecified; K21.9 Gastro-esophageal reflux disease without esophagitis; Z51.5 Encounter for palliative care; M15.0 Primary generalized (osteo)arthritis; R26.2 Difficulty in walking, not elsewhere classified; I25.10 Atherosclerotic heart disease of native coronary artery without angina pectoris; E55.9 Vitamin D deficiency, unspecified; G62.9 Polyneuropathy, unspecified; H35.30 Unspecified macular degeneration; Z96.651 Presence of right artificial knee joint; M54.9 Dorsalgia, unspecified; G89.29 Other chronic pain; R73.9 Hyperglycemia, unspecified; Z86.711 Personal history of pulmonary embolism; Z86.718 Personal history of other venous thrombosis and embolism; Z86.73 Personal history of transient ischemic attack (TIA), and cerebral infarction without residual deficits; Z95.1 Presence of aortocoronary bypass graft; Z95.810 Presence of automatic (implantable) cardiac defibrillator; Z90.49 Acquired absence of other specified parts of digestive tract; Z82.49 Family history of ischemic heart disease and other diseases of the circulatory system; Z82.61 Family history of arthritis; Z83.3 Family history of diabetes mellitus; Z91.048 Other nonmedicinal substance allergy status; Z79.899 Other long term (current) drug therapy; Z79.82 Long term (current) use of aspirin; Z68.23 Body mass index [BMI] 23.0-23.9, adult

== ENCOUNTER 2017-05-05 16:03 | Inpatient (IN) | payer MEDICARE ==
[~2017-05-05] VITALS: Ht 177.8 cm; Wt 73.1 kg
--- NOTE | ~2017-05-05 | PR ---
[place], [place] [id number] #: [id number] ROOM: 312 DOCTOR: FERMIN TALBERT BIRTHDATE: [birth year] DOS: 05/07/2017 CHIEF COMPLAINT: "Good morning." SUMMARY OF VISIT: The patient was assessed in the hallway, sitting outside the nurse's desk where he was eating breakfast initially when I entered the unit. After getting report, then I rounded on him. His head was in his hands, when I asked his what was wrong, he stated that his stomach was upset a little bit. They did have an emesis basin there and a towel as well. No issues per nursing. They do state that he has had some increased confusion, but really no behaviors. Dr. Barillas started him on Depakote and restarted his Exelon patch and Namenda. This may be contributing to some of his upset stomach. I want to see how he does throughout today. The upset stomach complaint is actually new, so I do not want to stop or change anything until unless I see that this is an ongoing issue. MENTAL STATUS: He is pleasantly confused. No overt signs of auditory or visual hallucinations, delusions, paranoia, micheal, or hypomania. Again, no behaviors. PLAN: Keep the medications where they are at. We will continue to monitor his upset stomach, see if he actually has emesis or decreased p.o. intake because of this. We will make the hospitalist aware at this time, but let us see how he does on the medications. Mood acharya, pleasant other than a little bit grimacing from an upset stomach. We will try to engage him in individual and hill milieu therapy, we will see how he does tomorrow and we can adjust from there. ARRON TALBERT CNP CM:PNTRANS [phone] [id number] FERMIN TALBERT 05/09/17712 interface
--- NOTE | ~2017-05-05 | PR ---
[place], [place] PROGRESS NOTE NAME: DARIO HUNT UNIT #: [id number] ROOM: 312 DOCTOR: VIANCA HARPER MD BIRTHDATE: [birth year] DOS: 05/06/2017 CHIEF COMPLAINT: "Hey, thanks for coming, when do we get to go home and which way to I go." SUMMARY OF THE VISIT: The patient was interviewed as he sat in his room. He engaged readily in conversation. He continues to be pleasantly confused, redirectable however. There was no agitation or aggression towards me. MENTAL STATUS: He is alert and oriented to self. It is unclear if he realizes that he is in the hospital, although I doubt he does and he is certainly not oriented to time. Mood does seem to be fairly more pleasant and he is trending toward improvement. Affect is much more appropriate. There are no symptoms of micheal or hypomania. There are no auditory or visual hallucinations. Short term memory is very poor. PLAN: I will augment the Exelon with Namenda 5 mg a day. Continue to support and monitor. Continue to engage in individual and hill milieu activity with the plan to return to the least restrictive environment when stable. VIANCA HARPER MD CM:PNTRANS [phone] VIANCA HARPER MD 05/08/1713 interface
--- NOTE | ~2017-05-05 | WRIGHTHP ---
[place], [place] PATIENT HISTORY AND PHYSICAL EXAM [id number] #: [id number] ROOM: 312 DOCTOR: VIANCA HARPER MD BIRTHDATE: [birth year] DOS: 05/06/2017 CHIEF COMPLAINT: "Good morning, is it breakfast time." SUMMARY OF THE VISIT: The patient was interviewed as he sat in a Lilli chair in the dining area. He engaged readily in conversation this morning." HISTORY OF PRESENT ILLNESS: This is an 87-year-old white male who was initially admitted here from the [facility] where he was recently admitted. While there, he escalated rapidly, threatened to bust out a window, was redirected and ultimately threw a chair through the window in an effort to elope because he felt everyone was trying to get him there. Since his initial admission to the U, he has had 2 transfers off the unit to the medical floor, the most recent for experiencing atrial fibrillation with rapid ventricular response. He has subsequently been stabilized well. On the medical floor; however, he continues to exhibit significant mood lability and agitation representing a significant harm to self and others, so he was transferred back to the U for further crisis stabilization to rule out organic factors, to engage in individual and hill milieu activity with the ultimate plan to return to the least restrictive environment when psychiatrically stable. PAST MEDICAL HISTORY: Remarkable for atrial fibrillation with rapid ventricular response, hyperchloremia, hyperglycemia, hypermagnesemia, macrocytic anemia, SIRS, subcortical microvascular ischemic disease and tachycardia. MENTAL STATUS EXAMINATION: This morning, he is alert and oriented to self, may be place, not time. Mood does seem to be rather labile, but redirectable. There are no auditory or visual hallucinations. No delusions, no paranoia. Short term memory is poor and he processes very slowly. PLAN: I have already started him on low dose Depakote 125 mg 3 times daily. I may adjust this further if need be. I have restarted the Exelon patch 4.6 mg a day. I will go ahead and augment with Namenda 5 mg a day and adjust both of these medications accordingly to attempt to improve or maintain ADLs, behavior and cognition, engage in individual and hill milieu activity with the plan then to return to the least restrictive environment when stable. [place], [place] PATIENT HISTORY AND PHYSICAL EXAM NAME: DARIO HUNT [facility] UNIT #: [id number] ROOM: 312 DOCTOR: VIANCA HARPER MD BIRTHDATE: [birth year] VIANCA HARPER MD CM:HISPHYS:PATIENT HISTORY AND PHYSICAL EXAMINATION [phone] VIANCA HARPER MD 05/06/17 1214 interface
--- NOTE | ~2017-05-05 | PR ---
[place], [place] PROGRESS NOTE [id number] UN[facility] #: [id number] ROOM: 312 DOCTOR: VIANCA HARPER MD BIRTHDATE: [birth year] DOS: 05/12/2017 CHIEF COMPLAINT: "It's tangled over here, is it tangled." SUMMARY OF THE VISIT: The patient was interviewed as he sat in the dining area in a Lilli chair. He engaged readily in conversation and reached out in help my hand once again. He seemed preoccupied that his head somehow was tangled pain and he seemed more perplexed than by the safety court that was attached to the alarm on his chair to prevent him from falling. He engaged readily in conversation and did respond positively as I talked to him about the reason for the alarm and also for the plans to get him to a long-term care facility for rehab. He nodded in agreement that he would be fine with this. Of note is that his behavior seems to be improving and he does seem to be less labile and less agitated. MENTAL STATUS: The patient is alert and oriented to person, possibly place, not time. Mood does seem to be trending towards euthymia. Affect is more appropriate. There is no micheal or hypomania. There are no overt auditory or visual hallucinations. No delusions, no paranoia. Short term memory is poor. PLAN: His valproic acid level is just fairly therapeutic at 57.7. I will go ahead and increase his Depakote Sprinkles up to 250 mg 3 times a day. We will plan to recheck a level that early next week, shooting for a level between 60 and 80 to control mood lability. We will ultimately plan to discharge to a long-term care facility when psychiatrically stable. VIANCA HARPER MD CM:PNTRANS [phone] VIANCA HARPER MD 05/12/17 1053 interface
--- NOTE | ~2017-05-05 | PR ---
[place], [place] PROGRESS NOTE NAME: [facility]UN[facility] #: [id number] UNIT #: [id number] ROOM: 312 DOCTOR: Ruben NOE,COURTNEY BIRTHDATE: [birth year] DOS: 05/13/2017 PSYCHIATRIC PROGRESS NOTE SUBJECTIVE: The patient seen and spoke with the staff. Per staff, the patient talks to unseen others, slept 8 hours. No behavioral problems or issues. The patient was pleasant, cooperative. He was in the dining area in the Availigent chair. He said that he was doing fine. He said again "just fine." He said that he wants to go. He was showing me his wrist band. He was not in any distress. He said that he is taking his medication regularly and reportedly he does not have any side effect also. MENTAL STATUS EXAMINATION: The patient was pleasant and cooperative, described his mood as "okay." Affect, mood congruent. Thought process is with confabulation. He denied auditory or visual hallucination. No delusion or paranoia noted. He denied suicidal ideation, intent or plan. He also denied homicidal ideation, intent or plan. PLAN: 1. Continue current medication and care. 2. Continue redirection. 3. [place] milieu and redirection. COURTNEY NOE MD CM:JUAN [phone] Ruben NOE 05/13/172149 interface
--- NOTE | ~2017-05-05 | PR ---
[place], [place] PROGRESS NOTE NAME: DARIO HUNT UNIT #: [id number] ROOM: 312 DOCTOR: VIANCA HARPER MD BIRTHDATE: [birth year] DOS: 05/08/2017 CHIEF COMPLAINT: "Are you gonna be able to fix the brakes, once you do which way would get out of here?" SUMMARY OF THE VISIT: The patient was interviewed as he sat in a Lilli chair in the quiet room, engaging in activity on the tray top. He stopped and engaged in conversation with me. He remains grossly confused, but pleasant and I was able to redirect. MENTAL STATUS: He is alert and oriented to person only. He does not realize that he is in the hospital. It seems like he believes he is in a service station getting his car fixed. He could not tell me how long he has been waiting; most of his responses were short and simple. He did not get agitated; however, and he was able to be redirected with minimal prompting. He seems to be tolerating the current medication regimen well. PLAN: I will go ahead and increase Exelon patch from 4.6 to 9.5 mg a day. I will simultaneously increase Namenda from 5 mg a day to 5 mg twice a day. We will continue to support and redirect, continue to explore possible placement options. We will discharge then to the least restrictive environment when psychiatrically stable. VIANCA HARPER MD CM:PNTRANS [phone] VIANCA HARPER MD 05/08/17 1004 interface
--- NOTE | ~2017-05-05 | DS ---
[place], [place] DISCHARGE SUMMARY [id number] UN[facility] #: [id number] ROOM: 312 DOCTOR: VIANCA HARPER MD BIRTHDATE: [birth year] DOS: 05/15/2017 CHIEF COMPLAINT: "Good morning, is it breakfast time?" HISTORY OF PRESENT ILLNESS: This is an 87-year-old white male who was initially admitted here from the [facility] where he was recently admitted. While there, he escalated rapidly believing that people were out to hurt him. He threatened to bust out a window, was redirected and calmed. Ultimately, however, he shortly began to escalate once again and he threw a chair through the window breaking it. He attempted to elope and had to be physically restrained. He was brought into the [facility] for stabilization, but had to be transferred off the unit due to ongoing medical problems including atrial fibrillation with rapid ventricular response. While on the medical floor, he was found to still be extremely labile and physically aggressive, requiring p.r.n. intervention and 1:1 sitting to prevent harm to self and others. He was readmitted now to the unit for further stabilization. PAST MEDICAL HISTORY: Remarkable for atrial fibrillation with rapid ventricular response, hyperchloremia, hyperglycemia, hypermagnesemia, macrocytic anemia, SIRS, subcortical microvascular ischemic disease and tachycardia. SUMMARY OF HOSPITAL COURSE: The patient was admitted to the unit where he was started initially on low dose Depakote of 125 mg 3 times daily, Exelon patch 4.6 mg a day was started. The dose of the Exelon was gradually increased to its maximum dose of 13.3 mg daily. Namenda was started to augment the Exelon at 5 mg a day and it too was brought up to its maximum dose of 10 mg twice daily to achieve maximum potentially improving and maintaining ADLs, behavior and cognition. His Depakote level was found to be subtherapeutic, so the dose was increased from 125 mg 3 times a day to 250 mg 3 times a day with good response. Trazodone 50 mg at bedtime was utilized both for sundowning and to aid sleep. With the combination listed above, the patient improved dramatically. He became much more compliant. His sundowning symptoms ceased. He did not engage in mood lability, agitation or aggression and was much more pleasant and bright. Sleep and appetite normalized and he had no side effects from the medications. He had improved sufficiently to return to a long-term care facility. MENTAL STATUS AT DISCHARGE: The patient is alert and oriented to person, possibly place, not time. Mood was euthymic. Affect appropriate. There were no symptoms of micheal or hypomania. There were no overt auditory or visual hallucinations. No delusions, no paranoia. Short term memory remained poor. 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 PLAN: All of his prescriptions have been printed and will be sent with him to the long-term care facility post-discharge. [place], [place] DISCHARGE SUMMARY [facility]: [facility] [id number] UNIT #: [id number] ROOM: 312 DOCTOR: VIANCA HARPER MD BIRTHDATE: [birth year] VIANCA HARPER MD CM:EDUARDO 1 [id number] VIANCA HARPER MD 05/15/17 1003 interface
--- NOTE | ~2017-05-05 | PR ---
[place], [place] PROGRESS NOTE [id number] #: [id number] ROOM: 312 DOCTOR: Ruben NOE,COURTNEY BIRTHDATE: [birth year] DOS: 05/14/2017 PSYCHIATRIC PROGRESS NOTE SUBJECTIVE: The patient seen and spoke with the staff. Per staff, the patient was up all night, up until 1:00 a.m. in the morning. He was calling his mother and later on went back to sleep. The patient just came out from shower. He was in the day area. He looks comfortable. He was not in any distress. When I asked him that how he is doing, he said that "we are not doing good." When I asked him that why he is not doing good, he was not able to come up with any answer. He was not in any distress. He is medication compliant and did not have any side effect from the medication. MENTAL STATUS EXAMINATION: The patient was pleasant and cooperative, described his mood as "not good." Affect, mood congruent, somewhat sleepy. Thought processes with confabulation. Denied auditory or visual hallucination. No delusion or paranoia noted. Denies suicidal ideation, intent or plan. He also denied any homicidal ideation, intent or plan. ASSESSMENT: Dementia with behavioral disturbances. PLAN: 1. Continue current medication and care. 2. Continue redirection and hill milieu. 3. Final medication management and discharge plan by the regular team. COURTNEY NOE MD CM:JUAN [phone] Ruben NOE 05/14/17 181 interface
--- NOTE | 2017-05-05 16:00 | NUR ---
DARIO HUNT a 87 year old M admitted via wheel chair from the OTHER as a voluntary admission BY HIS DAUGHTER BHANU HUNT. Arrived on unit at 1600. ALLERGIES: RAGWEED. Vital signs are: 98.3-88-16 130/85. The client signed the following forms with stated understanding: Authorization For The Release of Medical Information, Clothing List, Consent to Voluntary Admission and Hospitalization, Consent and Release Forms/Receipt of Rights, Acknowledgement of Advance Directive Information, Behavioral Health Consent Form, and Informed Consent of Medications. Admitted under the services of Dr. MEREDITH MARTINEZ,[facility]. A search was conducted and hazardous articles were removed. Client was oriented to the unit. ZURI MCGILL PT CAME IN A [facility] CHAIR [facility], DIRECTOR [facility], NURSE, LEGAL WRITING PROFESSOR PT HAS SEVERAL PERSONAL BELONGINS CHARTED, UPPER AND LOWER DENTURES, NO GLASSES OR HEARING AIDS, PT IS RESTLESS, CONFUSED, IRRITABLE, TALKING TO UNSEEN OTHERS, PT IS INCONTINENT, NO WOUNDS NOTED, HAS A SCAB ON R SKIN, PT IS ON FALL PRECAUTIONS, CALLED BHANU TO SEE IF WANTS FLU AND PNEUMONIA AND NO ANSWER LEFT A MESSAGE
[~2017-05-05 16:03] MED LIST changes: +ASPIRIN325 M2 PO
[2017-05-05 16:27] VITALS: BP 130/85
[2017-05-05 17:20] VITALS: BP 130/85
--- NOTE | 2017-05-05 17:37 | NUR ---
DR UNDERWOOD NOTIFED OF NEW ADMISION
[2017-05-05 20:09] VITALS: BP 135/89
--- NOTE | 2017-05-05 21:16 | NUR ---
SECOND CALL PLACED TO MEDICAL STAFF TO REORDER MEDICAL MEDS. AILYN CLARKE MADE AWARE
--- NOTE | 2017-05-05 21:40 | NUR ---
PT ALERT AND ORIENTED TO PERSON ONLY INCREASING IN AGITATION STATING THAT HE IS SEEING LITTLE WHITE DOGS RUNNING AROUND AND THAT THEY HAVE TO BE SAVED. UNABLE TO REORIENT TO PLACE AND TIME 1-1 INEFFECTIVE
--- NOTE | 2017-05-05 22:56 | NUR ---
PT CONTINUES WITH CONFUSION AND HALLUCINATIONS BUT DECREASE IN AGITATION AND AGGRESSION. PRN ATIVAN EFFECTIVE
--- NOTE | 2017-05-06 02:42 | NUR ---
24 HR chart check completed.
--- NOTE | 2017-05-06 06:55 | NUR ---
PT AWOKE PLESANT AND COOPERATE ALERT TO PERSON ONLY, NO AGITATION OR AGRESSION THIS AM. SLEPT 8 HOURS WITH OUT INTURRUPTION. CONTINUE WITH POC
[2017-05-06 08:00] VITALS: BP 147/87
--- NOTE | 2017-05-06 12:30 | NUR ---
DR. RUSSO ON UNIT TO SEE PATIENT.
--- NOTE | 2017-05-06 13:42 | NUR ---
PATIENT IS ALERT TO PERSON/ HANDS ON CARE ONLY, ABLE TO VOICE NEEDS. RESPONDS TO INTERNAL STIMULI, TALKING TO UNSEEN OTHERS. DENIES HI/SI OR PAIN. MOOD IS ANXIOUS AND IRRITABLE AT TIMES. REDIRECTED SEVERAL TIMES THOUGHOUT THE DAY AND EFFECTIVE. NO AGGRESSION NOTED. PATIENT REQUIRES 2 PERSON ASSIST WITH TRANSFER. ONE PERSON ASSIST WITH MEALS, INTAKES ARE GOOD WITH MUCH ENCOURAGEMENT WITH FLUIDS. CONTINENT OF BOWEL AND BLADDER. MEDICATION COMPLIANT. Q 15 MINUTE SAFETY CHECKS MAINTAINED.
[2017-05-06 20:00] VITALS: BP 126/73
--- NOTE | 2017-05-07 04:13 | NUR ---
24 HR chart check completed.
--- NOTE | 2017-05-07 06:57 | NUR ---
NO AGRESSIVE BEHAVIORS NOTED, MED COMPLIANT CONSUMED HS SNACK SLEPT IN BED 8+ HOURS. AWOKE CONFUSED AND AGITATED CALLING OUT FOR HIS DAD. CLIMBING OUT OF SHITAL CHAIR TAKING SOCKS OFF AND THROWING THEM ACROSS ROOM. UN ABLE TO REDIRECT AT THIS TIME.
[2017-05-07 08:03] VITALS: BP 139/81
--- NOTE | 2017-05-07 08:12 | NUR ---
PT FEELING NAUSEATED- GAVE A BASIN- OFFERED ZOPHRAN-
--- NOTE | 2017-05-07 08:19 | NUR ---
pt received 4 mg po zophran for c/o nausea
--- NOTE | 2017-05-07 14:23 | NUR ---
FABIANO KNIGHT GUARDIAN CAME IN AT LUNCH TIME AND YES WANTS THE PATIENT TO HAVE THE FLU VACCINE. SHE WASNTS US TO VERIFY HIS LAST PNEUMONIA WITH DR FRIEDMAN OFFICE TOMORROW. WILL PASS ALONG TO NEXT SHIFT
--- NOTE | 2017-05-07 16:23 | NUR ---
ALERT TO SELF, CONFUSED, CONTINENT, UNSTEADY, YELLS OUT, RESTLESS, YELLS OUT FOR MAMMA AND DAD, DAUGHTER CAME IN AND SAID MAMM AIS HIS . MED COMPLIANT TAKE PILLS WHOLE. NO HALLUCINATION OR DELUSIONS , NOT COMBATIVE
[2017-05-07 20:00] VITALS: BP 137/68
--- NOTE | 2017-05-07 21:18 | NUR ---
PLEASENTLY CONFUSED. DECLINED SNACK BUT DRANK GINGERALE AND WATER. MEDICATION COMPLIANT WITH APPLESAUCE. INCONTINENT OF URINE. CLEANED UP AND AMBULATED WITH POOR GAIT WITH ASSIST OF 2 TO BED. POSITION OF COMFORT.
--- NOTE | 2017-05-07 22:03 | NUR ---
REFUSES ORAL CARE. ALLOWED PERICARE ONLY
--- NOTE | 2017-05-08 00:14 | NUR ---
MOVED TO SHITAL CHAIR AND PLACED IN FRONT OF NURSES STATION FOR SAFETY. EXTREMELY CONFUSED TO PLACE AND TIME. UNABLE TO REORIENT CONTINUALLY CLIMBING OUT OF BED AND DISRUPTING ROOMMATES SLEEP. WILL MONITOR
--- NOTE | 2017-05-08 00:23 | NUR ---
APPEARS TO BE RESPONDING TO INTERNAL STIMULI. TALKING AND LOOKING AT UNSEEN PERSONS.
--- NOTE | 2017-05-08 01:54 | NUR ---
REMAINS AWAKE AND RESTLESS. UNABLE TO REDIRECT. CONTINUES TO CALL FOR MOM AND DAD TO HELP. WILL CONTINUE TO MONITOR
--- NOTE | 2017-05-08 03:17 | NUR ---
ASSISTED TO BATHROOM FOR MODERATE FORMED BM
--- NOTE | 2017-05-08 03:20 | NUR ---
24 HR chart check completed.
[2017-05-08 07:52] VITALS: BP 137/74
--- NOTE | 2017-05-08 11:22 | NUR ---
Exercise/October Fun Facts and Trivia Exercise helps with circulation, mobility and concentration staying on task. Trivia also helps with concentration as well as memory,thinking and socializing Patient did attend group but did not participate. Prompting patient to join in did not help. Patient went to sleep
--- NOTE | 2017-05-08 11:40 | NUR ---
ADAMARIS spoke with Na, the Contractor General Building at [facility] in regards to referral for pt. Na states that she had left a message last week with Chance BECERRA but had not heard back from her, MARIAM Fletcher states that she had not received a VM and was wondering if it was left on another phone. . This SWS asked what questions, Na states that patient they would need an alternative payor (medicaid) if LTC and would like for pt. to be pre-cert'ed for PT/OT before he would come. They also have concerns about pt. aggression and will evaluate as pt. makes progress at hospital to see if he does improve in his behaviors. Moise, to evaluate closer to d/c as to whether or not pt. can be admitted at their facility.
--- NOTE | 2017-05-08 11:58 | NUR ---
Spoke with Pennie, community liasion from [facility] in regards to referral for pt. admission at that facility. Pennie states she will be in today to re-assess and send updated info. to corporate to see if pt. can be admitted later in the week.
--- NOTE | 2017-05-08 12:18 | NUR ---
Addedum to the assessment, less than 30 days since last assessment. pt. returned to [facility] floor for further psychiatric care. pt. alert and oriented x 2. pt. displaying passive behavior, no agitation at this time. pt. was talkiing about "past" work and "How long before I can get back to work". Referrals have been made to [facility]awaiting reduction in pt. aggression before committing to admitting pt. at their facility, the [facility] also awaiting progress, [facility] awaiting corporate approval, [facility], states they never rec'd referral from [facility]., this SWS forwarded updated notes for consideration, [facility] rec'd updated info. also today to see about possible admission. [facility], may accept pt. back if behaviors are stabilzed.
--- NOTE | 2017-05-08 12:24 | NUR ---
SPEECH PATHOLOGY Bedside swallow eval. completed this date as per orders. Patient is known to this dept. from prior therapy services while on medical floor. During assessment patient was alert with confusion. Patient is currently ordered a pureed diet and thin liquids. He was observed with these consistencies and fed himself. Patient tolerated puree and thin liquid with no overt difficulty. He displayed a timely swallow with no residue, cough or wet vocal quality. Recommended he remain on present diet for safety. As he has been tolerating this consistency, follow up therapy is not recommended. Results and rin. were shared with patient's nurse who verbalized understanding. Refer to report in [facility] for further info. Thank you for this referral. SAIRA MOORE MS[employer]-SHUTTLE PREPARATION SUPERVISOR
--- NOTE | 2017-05-08 13:44 | NUR ---
PT IS ALERT AND ORIENTED TO PERSON AND APPROXIMATE PLACE, PT STATES HE KNOWS HE IS IN THE HOSPITAL BUT UNABLE TO STATE WHICH HOSPITAL. NOT ORIENTED TO TIME OR SITUATION. ST/LT MEMORY DEFICITS NOTED. RESPIRATIONS EASY ON ROOM AIR. MOOD IS DEPRESSED, AFFECT IS FLAT, SAD AND TEARFUL AT TIMES. SPEECH IS WNL AND COHERENT, ABLE TO MAKE NEEDS KNOWN. PT DENIES HALLUCINATIONS, NO RESPONSE TO INTERNAL STIMULI NOTED. PT DENIES SI/HI. MEDICATION COMPLIANT WITHOUT DIFFICULTY. PT ASKING TO GO HOME TO SEE HIS , REMINDED BY THIS NURSE AND FAMILY THAT HE CAN NOT LEAVE UNTIL HE IS DISCHARGED BY THE DOCTOR, PT DISSATISFIED WITH THIS ANSWER BUT HAS NOT BEEN COMBATIVE OR AGGRESSIVE. PT DISPLAYS GOOD APPETITE WITH ADEQUATE FLUID INTAKE, TOLERATING CURRENT DIET - [facility] SOFT/THIN LIQUIDS WITHOUT DIFFICULTY. ASSESSED BY SPEECH THERAPIST THIS DATE WITH RECOMMENDATION TO CONTINUE SAME DIET. NO DISTRESS NOTED. Q15 MIN SAFETY CHECKS MAINTAINED, REFER TO [facility] FLOWSHEET FOR SPECIFIC MONITORING.
--- NOTE | 2017-05-08 13:58 | NUR ---
PHYSICAL THERAPY PAtient evaluated on 3, full evaluation to follow. Continue with PT as per plan of care with unit three, fall and acute debility precautions. Will require SNF for impaired mobility in order to return patient to PLOF. PAtient is moderate complexity via chart review, tests and evaluation: 56597. thank you for this referral. Lizbeth Barreto,PT
--- NOTE | 2017-05-08 14:28 | NUR ---
Occupational Therapy evalaution completed this [facility] with full eval to follow. PRecautions include fall risk, personal alarm, impaired balance and safet awareness, poor STM, moderate complexity level 59010. Recommend SNF upon d/c to enable improved ADLs and functional mobility and safety. Thank you for this referral. Kiara Mcghee OTR/L
--- NOTE | 2017-05-08 15:22 | NUR ---
SWS spoke with sunday from [facility], pt. has been denied admission there.
--- NOTE | 2017-05-08 18:20 | NUR ---
SHIFT CHART CHECK COMPLETED.
[2017-05-08 19:57] VITALS: BP 140/75
--- NOTE | 2017-05-08 22:13 | NUR ---
MORE INTERACTIVE WITH STAFF THIS EVENING. MEDICATION COMPLIANT. DOES APPEARS TO RESPONDING TO SOME VISUAL HALLUCINATIONS AT THIS TIME. MOVING ALL EXTREMTIES AND MOVES SELF AROUND IN CHAIR. WILL MONITOR
--- NOTE | 2017-05-09 00:14 | NUR ---
HAS BEEN PLEASENTLY CONFUSED TONIGHT. CLIMBED OUT OF CHAIR AND WANTED TO SLEEP ON FLOOR. PLACED BACK IN CHAIR AND WRAPED WITH BLANKETS. MILIEU SITTING AT SIDE.
--- NOTE | 2017-05-09 03:02 | NUR ---
HAS BEEN SLEEPING OFF AND ON FOR LAST HOUR. REPOSITIONING SELF IN CHAIR. MILIEU AT SIDE.
--- NOTE | 2017-05-09 03:25 | NUR ---
placed client in bed with assist of 2. body and bed alarm on. will monitor
--- NOTE | 2017-05-09 03:46 | NUR ---
REFUSED TO STAY IN BED. REPOSITIONED MULITPLE TIMES WITHOUT SUCCESS. PLACED BACK IN SHITAL CHAIR AND BROUGHT TO ROOM ACROSS FROM NURSES STATION FOR SAFETY.
--- NOTE | 2017-05-09 04:43 | NUR ---
ACTING OUT. BROKE TABLE OFF SHITAL CHAIR, KICKING AND PUNCHING STAFF. HOG DRIVER MELANIE HERE TO WITNESS. REPOSITIONED AND CLIENT REMAINS A 1:1
--- NOTE | 2017-05-09 04:44 | NUR ---
24 HR chart check completed.
--- NOTE | 2017-05-09 06:40 | NUR ---
UP IN CHAIR SLEEPING. EYES CLOSED. RESP EASY NON LABORED
--- NOTE | 2017-05-09 07:11 | NUR ---
ptNirmala villalobos still advocating for pt. to be admitted at [facility]. [place]' waiting to see how well pt. progresses while on [facility] in regards to a reduction in his aggression.
[2017-05-09 08:43] VITALS: BP 136/82
--- NOTE | 2017-05-09 10:38 | NUR ---
PHYSICAL THERAPY Mr French seen this AM for his therapy. Pt was up in his gerichair, tray up. Pt had tore the top off from his other gerichair and not safe at this time to treat. MCKAYLA OLSON HAND SAMPLE MAKER.
--- NOTE | 2017-05-09 13:02 | NUR ---
Exercise/Bad Jokes and Slogans Benefits:Mobility, Flexability, Circulation,Cognative Skills, Patient did attend group as well as participate. Patient did not attempt all exercises but did perform the deep breathing and upper body motions. Patient also attempted answers to the jokes and slogans,making a few jokes himself that the other patients enjoyed. This helped the patient with his goals with coping skills, stayed in present reality and help to realease built up emotion with laughter
--- NOTE | 2017-05-09 15:27 | NUR ---
Jose has been noted to exhibit confusion throughout the day. Requires frequent orientation by staff, however, due to cognitive declinehe is unable to retain provided information. He frequently calls out to "Vero" and was assisted by milieu to telephone her. Within a very short period of time, he had forgotten that he made this call and resumed calling out to her. Receptive to verbal intervention from staff @ that time, however, this was short lived. Marked memory impairment noted. Fall precautions continue and have been maintained for safety. Requires encouragement to maintain an adequate fluid and nutritional intake. Refer to [facility] flowsheet for specific monitoring.
[2017-05-09 20:13] VITALS: BP 132/66
--- NOTE | 2017-05-09 21:30 | NUR ---
PATIENT MEDICATED WITH ATIVAN 1MG PO FOR INCREASED ANXIETY AND AGITATION. MEDICATION WITH EFFECTIVE RESULTS. PATIENT MEDICATION COMPLAINT. VOICES NO COMPLIANTS OF PAIN OR DISCOMFORT AT THIS TIME
--- NOTE | 2017-05-10 04:03 | NUR ---
24 HR chart check completed.
--- NOTE | 2017-05-10 07:41 | NUR ---
05/09/17 Afternoon Patient did not attend group. Patient originally came but asked Milieu if he could lay down.
[2017-05-10 08:18] VITALS: BP 142/86
--- NOTE | 2017-05-10 10:49 | NUR ---
PHYSICAL THERAPY Jose seen this AM 1:1 for his physical therapy session. Pt with sleeping and up in his gerichair with tray up. Jose not responding to verbal cues and his aid said that he was medicater last night, could not treat. MCKAYLA OLSON COMPETITIVE ATHLETE.
--- NOTE | 2017-05-10 12:52 | NUR ---
Exercise/Positivity Patient did join group but immediately started asking for help to go upstairs to see grandma. Patient could not be redirected. Patient was taken to the quiet room
--- NOTE | 2017-05-10 14:56 | NUR ---
PATIENT SEATED IN SHITAL CHAIR THIS DATE. NURSING REPORTS PATIENT NOT HAVIGN A GOOD DAY AND KEEPS TAKING HIS SHIRT OFF. PATIENT DECLINED OT THIS DATE STATING "NO". WILL TRY BACK LATER DATE. JAMES PATHAK
--- NOTE | 2017-05-10 15:36 | NUR ---
RICARDA! Patient did not attend group. Patient was in quiet room
--- NOTE | 2017-05-10 19:46 | NUR ---
Refer to [facility] flowsheet for specific monitoring for this day. Daughter (Kathleen) telephoned and expressed concern that her father, Jose, was previously taken off of the medication Neurontin. She requested for staff to convey this concern to both medical physician and psychiatrist. She is also requesting a telephone call from both. Jose is noted to exhibit marked confusion @ times and orientation provided is minimally effective. 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 Verbal intervention proved to be ineffective and he was medicated with ativan 1 mg po @ 0954. Ativan effective. He is compliant with taking his medications. Requires assistance with ADL's.
[2017-05-10 20:44] VITALS: BP 138/89
--- NOTE | 2017-05-11 03:04 | NUR ---
24 HOUR CHART CHECK COMPLETED.
--- NOTE | 2017-05-11 05:38 | NUR ---
PATIENT OBSERVED ON Q 15 MIN SAFETY CHECKS TO HAVE SLEPT >7 HOURS WITH NO AWAKENINGS. PLEASANTLY CONFUSED THIS SHIFT WITH NO IRRITABILITY OR AGITATION NOTED. NO HALLUCINATIONS OR DELUSIONS OBSERVED. MEDICATION COMPLIANT WITHOUT DIFFICULTY. NO PHYSICAL COMPLAINTS VOICED. NO SIGNS OR SYMPTOMS OF DISTRESS NOTED. REFER TO [facility] FLOWSHEET FOR SPECIFIC MONITORING.
[2017-05-11 08:29] VITALS: BP 114/63; BP 138/72
--- NOTE | 2017-05-11 08:56 | NUR ---
PHYSICAL THERAPY Mr French seen this AM for his physical therapy session and looking much better today, said that he wanted to walk. Transfer sit/stand with MOD CANVAS WORKER X 1, with verbal cueing to push off from his chair, up for standing balance MOD A X 1. Then gait MOD/MAX A X 1, 29' X 1, with cueing for gait balance, standing balance and his turns. Jose wanting to quit at this time and lay down he said but his breakfast was coming in. Treatment time 15 min and up in his gerichair tray up. MCKAYLA OLSON REFRIGERATOR TESTER.
--- NOTE | 2017-05-11 13:05 | NUR ---
Exercise/Choices/Trivia Patient did not attend group. Patient was asleep in his chair
[2017-05-11 20:21] VITALS: BP 115/78
--- NOTE | 2017-05-11 22:40 | NUR ---
PATIENT MEDICATION COMPLAINT. VOICES NO COMPLAINTS OF PAIN OR DISCOMFORT AT THIS TIME
--- NOTE | 2017-05-12 04:20 | NUR ---
PATIENT RECEIVED NORCO FOR COMPLAINT OF BUTTOCKS AND EYE PAIN. MEDICATION WITH EFFECTIVE RESULTS. PATIENT RESTING IN BED AT THIS TIME
--- NOTE | 2017-05-12 05:21 | NUR ---
24 HR chart check completed.
--- NOTE | 2017-05-12 07:33 | NUR ---
05/11/17 [facility] Patient did not attend group. Patient was calling out and could not be redirected. Patient taken to quiet room
[2017-05-12 07:59] VITALS: BP 128/62; BP 176/74
[2017-05-12 10:45] VITALS: BP 106/73
--- NOTE | 2017-05-12 11:53 | NUR ---
PHYSICAL THERAPY Jose seen this AM and was in the quite room. With Pt's aid transfer supine/sit, sitting balance MIN A X 1. Sit/stand and up on wheeled walker MOD A X 1, with much cueing. Then gait 19' with W/W and MOD HOSIERY KNITTER X 2, verbal cueing for gait safety and his turns. Followed by Jose going back to bed W/W MOD A X 2. MCKAYLA OLSON WORD PROCESSING OPERATOR.
--- NOTE | 2017-05-12 12:49 | NUR ---
URINALYSIS OBTAINED VIA CLEAN CATCH AND SENT TO LAB AT THIS TIME.
[2017-05-12 13:00] LABS: BILIRUBIN NEGATIVE (NEGATIVE); BLOOD NEGATIVE (NEGATIVE); CLARITY CLEAR (CLEAR); COLOR YELLOW (YELLOW); GLUCOSE NEGATIVE (NEGATIVE); KETONE NEGATIVE (NEGATIVE); LEUKO ESTERASE NEGATIVE (NEGATIVE); NITRITE NEGATIVE (NEGATIVE); PH 5.5 (5.0-9.0); UROBILINOGEN 0.2 E.U./dl (0.2-1.0)
--- NOTE | 2017-05-12 14:56 | NUR ---
PT IS ALERT AND ORIENTED TO SELF ONLY, CONFUSED IN OTHER ASPECTS. ST/LT MEMORY DEFICITS NOTED. RESPIRATIONS EASY ON ROOM AIR. MOOD IS LABILE, AFFECT IS FLAT. PT IS RESTLESS AND CONFUSED, REQUIRING FREQUENT REDIRECTION AND REORIENTATION BY STAFF. PT DENIES SI/HI. PT DENIES HALLUCINATIONS, VISUAL HALLUCINATIONS QUESTIONABLE, PT NOTED TO BE PICKING AT THE AIR AT TIMES, UNCLEAR TO WHETHER PT IS TRULY EXPERIENCING VISUAL HALLUCINATIONS OR IF THIS BEHAVIOR IS R/T CONFUSED STATE. NO AGGRESSIVE BEHAVIORS THIS SHIFT. HIGH FALL RISK PRECAUTIONS MAINTAINED, ALARMS ACTIVE AND AUDIBLE. PT REQUIRES STAFF ASSISTANCE WITH ALL ADLS INCLUDING FEEDING AT TIMES. PT REFUSED BREAKFAST, ATE 50% OF LUNCH, STAFF WILL CONTINUE TO ENCOURAGE ADEQUATE PO INTAKE. PT FREQUENTLY STATED HE NEEDED TO URINATE, URINALYSIS OBTAINED WITH NEGATIVE RESULT. KETOCONAZOLE CREAM APPLIED TO RASH ON BACK ORDERED, RASH APPEARS TO BE DECREASING IN SIZE AND REDNESS FADING. PT WAS GIVEN PRN NORCO ONE TAB PO AT 0945 FOR C/O HEADACHE AND PAIN ALL OVER, MEDICATION APPEARS EFFECTIVE OF THIS TIME. NO DISTRESS NOTED. Q15 MIN MONITORING CONTINUES PER POLICY. REFER TO [facility] FLOWSHEET FOR SPECIFIC MONITORING.
[2017-05-12 19:52] VITALS: BP 113/67
--- NOTE | 2017-05-12 21:25 | NUR ---
PT COMPLAINING OF BACK PAIN. UNABLE TO DESCRIBE EXACT LOCATION OR QUALITY OF PAIN. PRN NORCO ADMINISTERED. CONTINUE TO MONITOR FOR MEDICAITON EFFECTIVENESS.
--- NOTE | 2017-05-12 22:45 | NUR ---
PT RESTING QUIETLY IN BED. PRN MEDICATION APPEARS TO BE EFFECTIVE IN RELIEVING PAIN
--- NOTE | 2017-05-13 04:14 | NUR ---
PT BECOMING RESTLESS. ASKED IF PT IS EXPERIENCING ANY PAIN. PT VERBALIZED YES, BUT WAS INCAPABLE OF DESCRIBING INTENSITY OR LOCATION. PRN NORCO ADMINISTERED. CONTINUE TO EVALUATE MEDICATION EFFECTIVENESS.
--- NOTE | 2017-05-13 05:22 | NUR ---
PT RESTING QUIETLY IN BED WITH EYES CLOSED. PRN PAIN MEDICATION EFFECTIVE
--- NOTE | 2017-05-13 05:31 | NUR ---
24HR CHART CHECKS COMPLETE
--- NOTE | 2017-05-13 06:00 | NUR ---
PT UNABLE TO RESPOND TO LINE OF QUESITONING REGARDING SI/HI, HALLUCINATIONS, AND DELUSIONS. FREQUENTLY ASKING TO SPEAK TO HIS MOTHER OR FATHER. ORIENTED TO NAME ONLY. PT BECOMES NOTICABLY RESTLESS WHEN HIS BACK BEGINS TO HURT. BEST COURSE OF ACTION IS TO STAY ON TOP OF HIS PAIN. PT HAD A RESTFUL NIGHT SLEEP. REFER TO FLOWSHEET FOR ADDITIONAL INFO.
--- NOTE | 2017-05-13 06:06 | NUR ---
PT SLEPT >8HRS WITH ONE INTERRUPTION FOR BREAKTHROUGH PAIN MEDICATION.
[2017-05-13 08:33] VITALS: BP 116/84
[2017-05-13 20:00] VITALS: BP 115/78
--- NOTE | 2017-05-14 01:58 | NUR ---
UNABLE TO RELAX. CONTINUALLY CALLING OUT FOR HIS MOTHER TO "CLEAN MY EARS". UNABLE TO REORIENT. +HALLUCINATIONS VISUAL NOTED. UNABLE TO ANSWER IF NORCO EFFECTIVE FOR PAIN BUT LESS FACIAL GRIMACING NOTED
--- NOTE | 2017-05-14 05:42 | NUR ---
HAS BEEN UP MOST SHIFT. POSITIVE VISUAL AND AUDIO HALLUCINATIONS. UNABLE TO REDIRECT. EMOTIONAL SUPPORT PROVIDED. MOVES SELF AROUND IN CHAIR. 24 HR chart check completed.
[2017-05-14 08:22] VITALS: BP 138/77
--- NOTE | 2017-05-14 10:10 | NUR ---
DR. NOE ON UNIT AT THIS TIME, UPDATE GIVEN, MADE AWARE PT SLEPT POORLY LAST NIGHT.
--- NOTE | 2017-05-14 14:15 | NUR ---
MILIEU TOLIETING PATIENT THIS AFTERNOON ALERTED THIS NURSE TO A SMALL OPEN AREA PRESENT TO PT'S RIGHT BUTTOCK. OPEN AREA IS RED IN COLOR, SURROUNDING SKIN INTACT, AREA MEASURES 0.9CMX0.5CMX<0.1CM, NO FOUL ODOR OR DRAINAGE NOTED. NURSING GRAPHIC DESIGN PROFESSOR LYUBOV MADE AWARE, GRAPHIC DESIGN PROFESSOR ASSESSED THE WOUND, STAGES AREA A STAGE II PRESSURE WOUND. WOUND PHOTOGRAPH TAKEN AT THIS TIME, NURSING GRAPHIC DESIGN PROFESSOR TO UPLOAD PHOTO. PT'S NAYELY MARIO(POA) AND ANA NOTIFIED. CALL PLACED TO [phone], SPOKE TO DR. ORONA, MADE AWARE OF THE ABOVE, STATES HE WILL ENTER WOUND CARE ORDERS.
--- NOTE | 2017-05-14 14:24 | NUR ---
CALL PLACED TO DR. NOE, MADE AWARE PT IS EXHIBITING EXTREME RESTLESS BEHAVIOR, DISROBING, CALLING OUT FOR "CONEXANCE MD", ALL PHYSICAL NEEDS MET, PT DENIES PAIN, PT VISIBLY ANXIOUS, DR. NOE STATES TO GIVE ATIVAN 0.5MG PO X1 DOSE. WITNESSED BY 2ND RN MARIANA.
--- NOTE | 2017-05-14 18:04 | NUR ---
PT IS ALERT AND ORIENTED TO SELF ONLY, CONFUSED IN ALL OTHER ASPECTS. ST/LT MEMORY DEFICITS NOTED. RESPIRATIONS EASY ON ROOM AIR. MOOD IS STABLE, AFFECT IS FLAT. SPEECH IS SOFT AND SLOW. ABLE TO MAKE BASIC NEEDS KNOWN TO STAFF. SPEECH NONSENSICAL AT TIMES D/T LEVEL OF CONFUSION. PT NOTED TO BE EXPERIENCING POSSIBLE VISUAL HALLUCINATIONS, NOTED TO BE PICKING AT THE AIR. PT DENIES SI/HI. MEDICATION COMPLIANT WITH MEDS GIVEN CRUSHED IN PUDDING. PT IS RELIANT ON STAFF FOR ALL ACTIVITES OF DAILY LIVING, REQUIRES ASSISTANCE WITH FEEDING WELL AT TIMES D/T CONFUSION. PT DISPLAYS GOOD APPETITE WITH ADEQUATE FLUID INTAKE WITH HELP FROM STAFF. PT CONTINENT OF BOWEL AND BLADDER THIS SHIFT, BM X2 THIS SHIFT. WOUND CARE PROVIDED TO BUTTOCKS ORDERED. PT WAS GIVEN ATIVAN 0.5MG X1 DOSE PER MAR AND HAS BEEN EFFECTIVE FOR CALMING. NO DISTRESS NOTED. Q15 MIN SAFETY CHECKS MAINTAINED, REFER TO [facility] FLOWSHEET FOR SPECIFIC MONITORING.
--- NOTE | 2017-05-14 18:56 | NUR ---
SHIFT CHART CHECK COMPLETED.
[2017-05-14 19:48] VITALS: BP 134/76
--- NOTE | 2017-05-14 22:29 | NUR ---
PT WAS COMPLIANT TAKING HS MEDICATIONS CRUSHED & MIXED IN APPLESAUCE. CALM THIS EVENING. PT NOTED TO HAVE FACIAL GRIMMACING AT TIMES. WHEN ASKED IF HE WAS HAVING ANY PAIN HE SAID YES, WHOLE BODY. MEDICATED WITH 5/325MG PO @ 2041.
--- NOTE | 2017-05-14 22:53 | NUR ---
24 HR chart check completed.
--- NOTE | 2017-05-15 05:30 | NUR ---
NORCO GIVEN AT HS HAS BEEN EFFECTIVE & PT HAS SLEPT IN HIS BED QUIETLY THROUGHOUT THE SHIFT PAST 2299.
[2017-05-15 08:06] VITALS: BP 113/74
[2017-05-15] MEDS ORDERED: Vitamin D PO (09:07)
[2017-05-15] MEDS ORDERED: DIVALPROEX SOD125 M1 PO (09:07)
[2017-05-15] MEDS ORDERED: TRAZADONE HYDR100 MG PO (09:07)
[2017-05-15] MEDS ORDERED: MEMANTINE HCL10 MG PO (09:07)
[2017-05-15] MEDS ORDERED: EXELON13.3 MG/21 T (09:07)
--- NOTE | 2017-05-15 10:00 | NUR ---
PHYSICAL THERAPY Jose was seen this AM 1:1 for his therapy gait and talked into his gait. Pt wheeled out into the gayle and using ther gayle hand rail. With much verbal cueing transfer sit/stand and up on the third try with MOD A X 1, standing balance MOD A X 1. Followed by gait 22' X 2, with sitting rest and talked into his second gait with very slow gait and 3-4 stand rest with each gait, Pt wheeled back into the day room, body alarm on. MCKAYLA OLSON CONSULTING SOFTWARE ENGINEER.
--- NOTE | 2017-05-15 10:13 | NUR ---
MARIAM RECIVED E-MAIL FROM [facility] FABIANO HUNT REQUESTING THAT MEDICAL AND DR. HARPER RAKEL HER. MARIAM GAVE DR. HARPER AND HOSPITALIST NUMBER FOR DTR.
--- NOTE | 2017-05-15 10:28 | NUR ---
MARIAM faxed updated information to [facility] and [facility].
--- NOTE | 2017-05-15 10:30 | NUR ---
[facility] UP TO SEE PATIENT. WOUND CARE DRESSING APPLIED. WOUND IS HEALING
--- NOTE | 2017-05-15 11:28 | NUR ---
Exercise/Memory ball This will help patient with decreasing aggression/anger,learning some coping skills Patient did attend group but did not participate. Patient was encouraged numerous times to join group. Patient would not answer,patient continued to lay his head down and sleep or place his hand over his face
--- NOTE | 2017-05-15 11:37 | NUR ---
[facility]. MARIAM returned call and thank paddy linder for letting MARIAM know.
--- NOTE | 2017-05-15 11:53 | NUR ---
DARIO HUNT [id number] Please refer to the physician's history and physical for past medical history, comorbid conditions, and allergies. Diagnosis: BRIEF PSYCHOTIC DISORDER Pawel Score: 16,MODERATE RISK WOUND DESCRIPTIONS: Location of the wound: right buttocks Type of wound: stage 2 Thickness: Partial Size: 0.5cm x 0.9cm x 0.1cm Tunneling: none Undermining: none Sinus Tract: none Presence of Exudate: serosanguineous Amount: Light Color: Red Odor: None Periwound Skin Appearance: Normal Wound edges: approximated Pain (associated with wound): none at time of assessment How does patient state this happened? pt unable to state how this happened Surface the patient is resting on: Proform SKIN PREVENTION RECOMMENDATION: 1. Pressure redistribution support surface as appropriate 2. Elevate heels 3. Remove boots/TEDS every shift and reapply 4. Head of bed 30 degrees as tolerated 5. Assess nutrition and hydration 6. Manage moisture 7. Avoid the use of containment devices while in bed 8. Use absorptive products on surfaces limit layers of linens on bed 9. Turn and reposition every 1-2 hours in bed and every 1 hour in chair as tolerated 10. Weight shifts every 15 minutes while up in chair 11. Offloading with pillows or device to keep heels elevated off bed 12. Monitor skin at least every shift 13. Inspect under medical devices twice a day WOUND TREATMENT RECOMMENDATIONS: Continue current treatments.
--- NOTE | 2017-05-15 12:07 | NUR ---
PATIENT IN GERICHAIR THIS DATE AND DECLINED THERAPY VERBALIZING "NO" TO ANY ACTIVITY. JAMES JONES/Yesi
--- NOTE | 2017-05-15 12:59 | NUR ---
SW asked Senior Manager Creative Services to check with [facility] to see if they were going to accept him.
--- NOTE | 2017-05-15 13:27 | NUR ---
SW received call from [facility] due to not being a good fit for facility at this time.
--- NOTE | 2017-05-15 15:06 | NUR ---
Nutritional Support Services Note: Pt noted to have a small wound to buttocks. Pureed diet as ordered. Recommend pt to receive Boost supplement po TID with meals, to help increase kcal and protein. Will follow. Mary Jo Bowman
--- NOTE | 2017-05-15 17:00 | NUR ---
ALERT TO SELF, CONFUSED, INCONTROL, CONTINENT, WOUND ASSESSED AND WOUND CARE DONE. MED COMPLIANT TAKE PILLS WHOLE, NOT FEEDING SELF, UP WITH 1-2 ASSIST, NOT COMBATIVE, NOT VERBALIZING SELF HARM
--- NOTE | 2017-05-15 18:13 | NUR ---
SW faxed referrals again to [facility]. MARIAM faxed referral to [facility] at the [facility].
--- NOTE | 2017-05-15 18:53 | NUR ---
MARIAM sent e-mail to Pat French, OBI/Dtr informing that [facility] declined Pt's referral. MARIAM informed that referrals were [facility] to [facility] and [facility] at [facility] and asked Dtr to send names of facilities that other referrals can be sent to.
[2017-05-15 20:03] VITALS: BP 113/66
--- NOTE | 2017-05-15 20:09 | NUR ---
UP IN DININGROOM. MOVING SELF IN CHAIR. NO AGGITATION AT THIS TIME.
--- NOTE | 2017-05-16 00:24 | NUR ---
RESTING QUIET IN BED AT THIS TIME. MOVES ALL EXTREMETIES. RESP EASY NON LABORED
--- NOTE | 2017-05-16 04:54 | NUR ---
24 HR chart check completed.
--- NOTE | 2017-05-16 07:10 | NUR ---
left vm for Leyda Solis at [facility] to determine where pt. is to be placed at today for d/c do to it being [facility] responsibility to place pt. due to facility not accepting pt. back. Darrin let Leyda know that we need pt. d/c'ed today from [facility] and may need to call the [facility] Office if [facility] does not place pt.
--- NOTE | 2017-05-16 07:20 | NUR ---
SWS left vm for Soto, peoplesoft administrator at [facility] to return p.c. due to atte,pting to call [place], the community liasion on several occasions in the past few weeks to get status updates on admission of pt's. Michelle's vm has been full each time and SWS has to follow up and call facilities anyway to check on status. Soto to call back on status of admission or will call facilities to check on status update.
--- NOTE | 2017-05-16 07:57 | NUR ---
05/15/17 Afternoon [facility] This would help patient with staying on task and keeping to current reality Patient did attend group but refussed to join. Patient was not agitated or aggresive. Patient just refused to join in saying "no,I dont want to."
[2017-05-16 08:14] VITALS: BP 118/68
--- NOTE | 2017-05-16 08:23 | NUR ---
PHYSICAL THERAPY Jose was seen this AM and was sound asleep in the quite room. His aid said that he has been there all night like that. MCKAYLA OLSON PTA.
--- NOTE | 2017-05-16 09:03 | NUR ---
MARIAM RECEIVED E-MAIL BACK FROM [facility] FABIANO WITH NAMES OF LOCAL FACIILIES. DR. HARPER HAS NOT CALLED [facility]. DR. CARPENTER CALLED AND SPOKE WITH [facility] ON May. FACILITES ARE THE FOLLOWING: [facility], [facility], [facility], AND [facility].
--- NOTE | 2017-05-16 09:06 | NUR ---
MARIAM SPOKE WITH [facility] [phone]. [facility] HAS OPEINGS BUT NOT SURE IF [facility] ([phone]) LOCATION HAS OPEINGS. MARIAM GAVE DTR'S FABIANO NUMBER . SPORTS NUTRITIONIST FROM BOTH FACILITIES SNEHA ELLINGTON DTGabriel. MARIAM WILL FAX REFERRAL TO [facility] FAX [phone].
--- NOTE | 2017-05-16 09:14 | NUR ---
MARIAM CALLED [facility] ([phone]) TO OBTAIN FAX NUMBER. FAX: [phone]. MARIAM FAXED REFERRAL.
--- NOTE | 2017-05-16 09:20 | NUR ---
MARIAM CALLED [facility] ([phone]) TO OBTAIN FAX NUMBER TO SEND REFERRAL. FAX #; [phone]. MARIAM FAXED REFERRAL.
--- NOTE | 2017-05-16 09:24 | NUR ---
MARIAM CALLED [facility] ([phone]). MARIAM SPOKE WITH FAHEEM BARONE. FAX NUMBER IS [phone]. MARIAM FAXED REFERRAL
--- NOTE | 2017-05-16 11:32 | NUR ---
Occupational Therapy treatment attempted this morning. Pt was in group activity. will attempt at another date/time. Continue plan of care as established. KAREN Riggs/Yesi
--- NOTE | 2017-05-16 11:47 | NUR ---
Exercise/Games Patient was in lounge during group but patient was sleeping. When i woke patient and asked him to join he said no and went back to sleep
--- NOTE | 2017-05-16 12:50 | NUR ---
MARIAM RECEIVED EMAIL FROM DTR FABIANO HUNT. FACILITIES IN HER AREA DUE NOT TAKE MEDICAID. FABIANO LIKED WEBSITE FOR [facility]. MARIAM WILL FOLLOW UP ABOUT REFERRAL FROM YESTERDAY.
--- NOTE | 2017-05-16 12:51 | NUR ---
SW LEFT VM FOR NAHOMY OZUNA ABOUT REFERRAL FOR PT.
--- NOTE | 2017-05-16 12:55 | NUR ---
MARIAM RECIVED CALL ACK FROM [facility] STATING THAT SHE TOLD ELLIOT THAT FACILTY ACCEPTED PT AND TRANSPTRORTATION WAS ARRANGED FOR 5PM.
--- NOTE | 2017-05-16 12:58 | NUR ---
MARIAM RECIEVED E-MAIL FROM DTR FABIANO STATING THAT FACILITIES AROUND HER DO NOT TAKE MEDICAID. FABIANO LOOKED AT [facility] WEBSITE AND SAID IT LOOKED NICE AND INQUIRED IF HEARD ANYTHING. MARIAM SENT E-MAIL BACK AND INFORMED HER THAT [facility] AND PT WAS BEING TRANSFERRED AROUND 5PM TODAY.
--- NOTE | 2017-05-16 13:22 | NUR ---
spoke with Leyda from [employer], she states [place] [facility] at reted info. on pt. and am hoping that they yanna take pt. Gabriela from [place] [facility] emailed this SWS and states pt. has been accepted in their behavioral health unit. pt. to be d/c'ed today if ambulance company can find extra transport help. Nurse and milieu's notified.
--- NOTE | 2017-05-16 13:50 | NUR ---
MARIAM RECIVED EMIALS BACK FROM DTR FABIANO THAT SHE DID NOT WANT PT MOVED [facility]. MARIAM ALSO RECEIVED VM CONCERNING DISCHARGE. MARIAM GAVE INFORMATION TO ROBERTH BAILON TO RETURN CALL TO [facility].
--- NOTE | 2017-05-16 14:09 | NUR ---
VM RECEIVED [facility] INFORMING THAT THEY DO NOT HAVE ANY BEDS AT THIS TIME.
--- NOTE | 2017-05-16 14:14 | NUR ---
VM THAT [facility]AH STOCKDALES DECLINED REFERRAL. JIM PENA CUSTODIAL RECEIVED REFERRAL FROM SARAH MCGHEE AND BECKY DECLINED REFERRAL.
--- NOTE | 2017-05-16 14:20 | NUR ---
spoke with pt sterling Jerome who is hesitatnt to have pt. be d/c'ed to facility. Processed her feelings and encouraged her to take a tour on the internet and to sree with rafaela at the facility, the community liasion. pt. tentative d/c set for 4pm today. Gave Suresh Stewart phone number.
--- NOTE | 2017-05-16 15:10 | NUR ---
PATIENT READY FOR DISCHARGE, ALL INSTRUCTIONS AND MEDICATION EDUCATION ON COUMADIN THERAPY PROVIDED, ALL PAPERWORK SIGNED AND ANSWERED ALL QUESTIONS REGARDING DISCHARE, EXPRESSED IMPORTANCE TO GO TO FOLLOW UP APPTS. PATIENT DISCHARGE OFF UNIT IN WHEELCHAIR WITH STAFF ASSISTANCE TO TAXI. ALL BELONGINGS AND DISCHARGE INSTRUCTION TAKEN WITH PATIENT AT THIS TIME OFF UNIT.
--- NOTE | 2017-05-16 15:35 | NUR ---
Halloween Color and Talk Patient was in room during activities but did not participate. Patient was asleep in his chair with an attempt to wake patient to encourage him to join. Patien just rubs his head and says "no" and goes back to sleep
--- NOTE | 2017-05-16 16:30 | NUR ---
[facility], 2 ASSIST TO [facility]; ALL DISCHARGE INSTRUCTIONS AND BELONGING SENT WITH PATIENT OFF UNIT. PATIENT DISCHARGE AT THIS TIME. NURSE TO NURSE CALL TO JOSHUA FOR REPORT, ALL QUESTIONS ANSWERED.
--- NOTE | 2017-05-17 08:10 | NUR ---
PHYSICAL THERAPY CO-SIGN I approve of the Phyical Therapy notes written above. TODD DC PT
--- NOTE | 2017-05-17 08:12 | NUR ---
OCCUPATIONAL THERAPY CO-SIGN I approve of the Occupational Therapy notes written above. ORTEGA PALMA OTR/Yesi
== END 2017-05-16 16:30 | disposition other institution (70) | DRG 56 ==
LOC: 3N 16:03
PROVIDERS: Registered Nurse; ADMIT Psychiatry & Neurology Psychiatry
DX: G30.9 Alzheimer's disease, unspecified (principal); J18.9 Pneumonia, unspecified organism; I11.0 Hypertensive heart disease with heart failure; I67.82 Cerebral ischemia; F02.81 Dementia in other diseases classified elsewhere, unspecified severity, with behavioral disturbance; F33.3 Major depressive disorder, recurrent, severe with psychotic symptoms; R65.10 Systemic inflammatory response syndrome (SIRS) of non-infectious origin without acute organ dysfunction; I50.30 Unspecified diastolic (congestive) heart failure; Z99.81 Dependence on supplemental oxygen; I25.10 Atherosclerotic heart disease of native coronary artery without angina pectoris; I48.0 Paroxysmal atrial fibrillation; G89.29 Other chronic pain; D53.9 Nutritional anemia, unspecified; R73.9 Hyperglycemia, unspecified; E83.41 Hypermagnesemia; M54.9 Dorsalgia, unspecified; M19.90 Unspecified osteoarthritis, unspecified site; K21.9 Gastro-esophageal reflux disease without esophagitis; Z86.718 Personal history of other venous thrombosis and embolism; Z86.711 Personal history of pulmonary embolism; Z86.73 Personal history of transient ischemic attack (TIA), and cerebral infarction without residual deficits; Z90.49 Acquired absence of other specified parts of digestive tract; Z95.1 Presence of aortocoronary bypass graft; Z95.810 Presence of automatic (implantable) cardiac defibrillator; Z84.89 Family history of other specified conditions; Z82.49 Family history of ischemic heart disease and other diseases of the circulatory system; Z83.3 Family history of diabetes mellitus; Z79.2 Long term (current) use of antibiotics; Z79.82 Long term (current) use of aspirin; Z79.899 Other long term (current) drug therapy

== ENCOUNTER 2017-06-17 11:33 | Emergency (ER) | payer MEDICARE ==
[2017-06-17] VITALS (9 sets, daily range): BP systolic 92–130; BP diastolic 50–80
[~2017-06-17] VITALS: Ht 162.5 cm; Wt 70.3 kg
[~2017-06-17 11:33] MED LIST changes: +DIVALPROEX SOD125 M1 PO; +EXELON13.3 MG/21 T; +MEMANTINE HCL10 MG PO; +TRAZADONE HYDR100 MG PO; +Vitamin D PO
--- NOTE | 2017-06-17 12:23 | NUR ---
REPORT TO ROBBIN SPAULDING RN, FOR END OF CARE REPORT.
[2017-06-17 12:26] LABS: BASO % 0.3 % (0.0-1.0); EOS # 0.2 10*3/uL (0.0-0.4); EOS % 3.2 % (1.0-4.0); HEMATOCRIT 31.9 % (42.0-52.0); HEMOGLOBIN 10.4 g/dl (14.0-18.0); LYMPH # 1.5 10*3/uL (1.3-4.4); LYMPH % 23.1 % (27.0-41.0); MEAN CELL VOLUME 98.2 fl (80.0-94.0); MEAN CORPUSCULAR HGB CONC 32.6 g/dl (33.0-37.0); MEAN PLATELET VOLUME 9.9 fl (9.6-12.3); MONO # 0.8 10*3/uL (0.1-1.0); MONO % 12.8 % (3.0-9.0); NEUT # 3.9 10*3/uL (2.3-7.9); NEUT % 60.3 % (47.0-73.0); PLATELET COUNT AUTOMATED 224 10*3/uL (130-400); RED BLOOD COUNT 3.25 10*6/uL (4.50-5.90); RED CELL DISTRI WIDTH 15.3 % (0-14.5); WHITE BLOOD COUNT 6.5 10*3/uL (4.8-10.8)
[2017-06-17 12:36] LABS: ACT PARTIAL THROMBO TIME 21.9 SECONDS (20.8-31.5); INTERNATIONAL NORM RATIO 1.2 (2.0-3.5)
[2017-06-17 12:42] LABS: ALBUMIN 2.2 gm/dl (3.1-4.5); ALKALINE PHOSPHATASE 87 U/L (45-117); BUN 18 mg/dl (7-24); CHLORIDE 111 mmol/L (98-107); CREATININE 1.17 mg/dL (0.70-1.30); SGOT/AST 31 IU/L (3-35); SGPT/ALT 29 U/L (12-78); SODIUM 145 mmol/L (136-145); TOTAL PROTEIN 5.7 gm/dL (6.4-8.2)
[2017-06-17 12:43] LABS: TROPONIN I 0.027 ng/ml (<0.045)
--- NOTE | 2017-06-17 13:20 | NUR ---
CARDIZEM 5MG IV PUSHED PT REMAINS IN A FIB RVR HR 100-110 FAMILY AT BEDSIDE CALL LIGHT IN REACH
--- NOTE | 2017-06-17 13:40 | NUR ---
PT REMAINS IN [facility] RVR WITH OCC PVC'S HR [id number] FAMILY IN ROOM CALL LIGHT IN REACH
[2017-06-17] MEDS ORDERED: EXEL13.31 T (13:44)
--- NOTE | 2017-06-17 13:48 | NUR ---
PER THE PATIENT'S PHARMACY ON FILE NOTHING HAS BEEN FILLED SINCE APR 2017. ONLY THE EXELON PATCH SHOULD STILL HAVE MEDS REMAINING
[2017-06-17] MEDS ORDERED: DEPAKOTE250 MG PO (13:57)
[2017-06-17] MEDS ORDERED: NAMENDA10 MG PO (13:57)
[2017-06-17] MEDS ORDERED: TRAZODONE50 MG PO (13:58)
--- NOTE | 2017-06-17 13:58 | NUR ---
DAUGHTER TO DESK CONCERNED ABOUT NEW ONSET RIGHT SIDE FACIAL DROOP UPON INSPECTION OF PT RIGHT SIDE FACIAL DROOP NOTED DR CERDA NOTIFIED PT ORDERED CT
--- NOTE | 2017-06-17 14:02 | NUR ---
PT TO CT SCAN WILL MONITOR
--- NOTE | 2017-06-17 14:10 | NUR ---
PT RETURNED FROM CT VITALS WNL RIGHT SIDE FACIAL DRROP NOTED TRAFFIC SIGNAL REPAIRER EQUAL BILATERALLY FAMILY IN ROOM CALL LIGHT IN REACH CVARDIZEM DRIP INFUSING WILL MONITOR
--- NOTE | 2017-06-17 14:26 | NUR ---
NEGATIVE CT CALLED TO DR RENDON FROM [facility] FAMILY NOTIFIED PT TO BE TRANSFERRED TO [facility]
--- NOTE | 2017-06-17 14:54 | NUR ---
Transfer Out, from the Emergency Department - Stable This patient, DARIO HUNT, [place], 32, [id number], [id number], was examined by the Emergency Department physician, SHRADDHA Colvin DO and efforts were made to stabilize the patient. The patient's condition is stable. The reason for transfer is need higher level of care . The Emergency physician has made the decision to transfer the patient out. Refer to the ED physician's dictation for the family/back-up physician notified. The attending physician has spoken to the accepting physician at the receiving facility, [facility]. Refer to the ED physician's dictation. The receiving facility has space and qualified personnel to care for the patient, and has agreed to accept the patient. Proper equipment and trained personnel have been arranged. The mode of transport is ground. The agency is [facility]. The Emergency physician has spoken to the transport staff re: patient's condition and needs during transport. Copies of the medical record have been forwarded to the receiving facility, including: - Emergency Department record: - name, address, hospital number, age, next of kin - presenting problem - history of injury, past medical history - treatment, medications & route, fluid type & volume - lab and xray findings, films - physical findings - vitals signs -- prehospital, emergency, pre-transfer - preliminary diagnosis - status/condition - emergency medical services record - consent for transfer - authorization for record release - name of any involed physicians -- responsive or not - name and address of referring physician - name of contact physician at receiving facility - name of accepting physician at receiving facility Nursing report has been given to [facility]. Valuables include SENT WITH PT. and were given to PATIENT. HARPER CHAVES
--- NOTE | 2017-06-17 14:55 | NUR ---
FAMILY AWARE PT BEING TRANSFERED WAITING ON [facility] ETA 15-20 MIN
--- NOTE | 2017-06-17 15:20 | NUR ---
[facility] HERE FOR TRANSPORT FAMILY IN ROOM
--- NOTE | 2017-06-17 15:40 | NUR ---
PT EXITED VIA [facility] NO DISTRESS NOTED
== END 2017-06-17 14:52 | disposition short-term general hospital (02) ==
LOC: ED 11:33 → EDHOLD 13:24 → 4E 13:50 → EDHOLD 13:50 → ED 14:52
PROVIDERS: Student in an Organized Health Care Education/Training Program
DX: I63.9 Cerebral infarction, unspecified (principal); I48.91 Unspecified atrial fibrillation; I11.0 Hypertensive heart disease with heart failure; I50.9 Heart failure, unspecified; I25.10 Atherosclerotic heart disease of native coronary artery without angina pectoris; G89.29 Other chronic pain; K21.9 Gastro-esophageal reflux disease without esophagitis; M19.90 Unspecified osteoarthritis, unspecified site; Z86.718 Personal history of other venous thrombosis and embolism; Z86.711 Personal history of pulmonary embolism; Z90.49 Acquired absence of other specified parts of digestive tract; Z98.890 Other specified postprocedural states; Z95.1 Presence of aortocoronary bypass graft; Z96.651 Presence of right artificial knee joint; Z87.01 Personal history of pneumonia (recurrent); Z79.899 Other long term (current) drug therapy; Z79.82 Long term (current) use of aspirin

== ENCOUNTER 2017-07-03 04:02 | Emergency (ER) | payer MEDICARE ==
[~2017-07-03] VITALS: Ht 167.6 cm; Wt 72.6 kg
[~2017-07-03 04:02] MED LIST changes: +DEPAKOTE250 MG PO; +EXEL13.31 T; +NAMENDA10 MG PO; +TRAZODONE50 MG PO
[2017-07-03 04:55] LABS: BASO % 0.6 % (0.0-1.0); EOS # 0.3 10*3/uL (0.0-0.4); HEMATOCRIT 34.2 % (42.0-52.0); HEMOGLOBIN 11.1 g/dl (14.0-18.0); LYMPH # 1.5 10*3/uL (1.3-4.4); LYMPH % 22.9 % (27.0-41.0); MEAN CELL VOLUME 97.2 fl (80.0-94.0); MEAN CORPUSCULAR HGB 31.5 pg (27.0-31.0); MEAN CORPUSCULAR HGB CONC 32.5 g/dl (33.0-37.0); MEAN PLATELET VOLUME 9.7 fl (9.6-12.3); MONO # 0.5 10*3/uL (0.1-1.0); MONO % 7.8 % (3.0-9.0); NEUT # 4.2 10*3/uL (2.3-7.9); NEUT % 64.1 % (47.0-73.0); PLATELET COUNT AUTOMATED 239 10*3/uL (130-400); RED BLOOD COUNT 3.52 10*6/uL (4.50-5.90); RED CELL DISTRI WIDTH 15.9 % (0-14.5); WHITE BLOOD COUNT 6.5 10*3/uL (4.8-10.8)
[2017-07-03 05:06] LABS: ACT PARTIAL THROMBO TIME 26.1 SECONDS (20.8-31.5); INTERNATIONAL NORM RATIO 1.3 (2.0-3.5)
[2017-07-03 05:07] LABS: BUN 13 mg/dl (7-24); CHLORIDE 111 mmol/L (98-107); CREATININE 0.93 mg/dL (0.70-1.30); POTASSIUM 3.5 mmol/L (3.5-5.1); SODIUM 145 mmol/L (136-145)
[2017-07-03 05:48] VITALS: BP 137/82
== END 2017-07-03 07:49 | disposition home or self-care (01) ==
LOC: ED 04:02
PROVIDERS: Emergency Medicine Emergency Medical Services
DX: S16.1XXA Strain of muscle, fascia and tendon at neck level, initial encounter (principal); S00.03XA Contusion of scalp, initial encounter; I25.10 Atherosclerotic heart disease of native coronary artery without angina pectoris; I48.0 Paroxysmal atrial fibrillation; I11.0 Hypertensive heart disease with heart failure; I50.30 Unspecified diastolic (congestive) heart failure; M19.90 Unspecified osteoarthritis, unspecified site; K21.9 Gastro-esophageal reflux disease without esophagitis; Z86.73 Personal history of transient ischemic attack (TIA), and cerebral infarction without residual deficits; Z79.899 Other long term (current) drug therapy; W18.39XA Other fall on same level, initial encounter; Y93.89 Activity, other specified; Y92.091 Bathroom in other non-institutional residence as the place of occurrence of the external cause; Y99.8 Other external cause status

== ENCOUNTER 2017-07-26 14:37 | Inpatient (IN) | payer MEDICARE ==
[~2017-07-26] VITALS: Ht 170.1 cm; Wt 73.7 kg
[2017-07-26 14:46] VITALS: BP 108/50
[2017-07-26 15:56] LABS: BASO % 0.3 % (0.0-1.0); EOS # 0.1 10*3/uL (0.0-0.4); EOS % 2.4 % (1.0-4.0); HEMATOCRIT 38.8 % (42.0-52.0); HEMOGLOBIN 12.3 g/dl (14.0-18.0); LYMPH # 2.3 10*3/uL (1.3-4.4); LYMPH % 39.1 % (27.0-41.0); MEAN CORPUSCULAR HGB 31.7 pg (27.0-31.0); MEAN CORPUSCULAR HGB CONC 31.7 g/dl (33.0-37.0); MONO # 0.5 10*3/uL (0.1-1.0); MONO % 7.7 % (3.0-9.0); NEUT # 2.9 10*3/uL (2.3-7.9); NEUT % 50.2 % (47.0-73.0); PLATELET COUNT AUTOMATED 234 10*3/uL (130-400); RED BLOOD COUNT 3.88 10*6/uL (4.50-5.90); RED CELL DISTRI WIDTH 16.5 % (0-14.5); WHITE BLOOD COUNT 5.9 10*3/uL (4.8-10.8)
[2017-07-26 16:05] LABS: ACT PARTIAL THROMBO TIME 30.8 SECONDS (20.8-31.5); INTERNATIONAL NORM RATIO 1.3 (2.0-3.5)
[2017-07-26 16:15] LABS: ALBUMIN 2.6 gm/dl (3.1-4.5); ALKALINE PHOSPHATASE 148 U/L (45-117); BUN 12 mg/dl (7-24); CHLORIDE 110 mmol/L (98-107); CREATININE 1.04 mg/dL (0.70-1.30); LIPASE 67 U/L (73-393); SGOT/AST 19 IU/L (3-35); SGPT/ALT 16 U/L (12-78); SODIUM 145 mmol/L (136-145); TOTAL PROTEIN 6.2 gm/dL (6.4-8.2)
[2017-07-26 16:17] LABS: TROPONIN I < 0.015 ng/ml (<0.045)
[2017-07-26 17:39] LABS: BILIRUBIN NEGATIVE (NEGATIVE); BLOOD NEGATIVE (NEGATIVE); CLARITY SL CLOUDY (CLEAR); COLOR YELLOW (YELLOW); GLUCOSE NEGATIVE (NEGATIVE); KETONE 1+ (NEGATIVE); LEUKO ESTERASE 2+ (NEGATIVE); NITRITE POSITIVE (NEGATIVE); PH 5.5 (5.0-9.0)
[2017-07-26 17:50] LABS: BACTERIA 3+; WBC TNTC wbc/hpf (0-5)
[2017-07-26 19:30] VITALS: BP 98/54
[2017-07-26 19:31] VITALS: BP 118/60
[2017-07-26 20:04] VITALS: BP 98/54
[2017-07-27] VITALS: BP 105/56
[2017-07-27 07:04] LABS: BASO % 0.5 % (0.0-1.0); EOS # 0.2 10*3/uL (0.0-0.4); EOS % 2.4 % (1.0-4.0); HEMATOCRIT 33.6 % (42.0-52.0); HEMOGLOBIN 10.9 g/dl (14.0-18.0); LYMPH # 2.6 10*3/uL (1.3-4.4); LYMPH % 38.5 % (27.0-41.0); MEAN CELL VOLUME 99.7 fl (80.0-94.0); MEAN CORPUSCULAR HGB 32.3 pg (27.0-31.0); MEAN CORPUSCULAR HGB CONC 32.4 g/dl (33.0-37.0); MEAN PLATELET VOLUME 9.9 fl (9.6-12.3); MONO # 0.5 10*3/uL (0.1-1.0); MONO % 7.6 % (3.0-9.0); NEUT # 3.4 10*3/uL (2.3-7.9); NEUT % 50.8 % (47.0-73.0); PLATELET COUNT AUTOMATED 221 10*3/uL (130-400); RED BLOOD COUNT 3.37 10*6/uL (4.50-5.90); RED CELL DISTRI WIDTH 16.2 % (0-14.5); WHITE BLOOD COUNT 6.6 10*3/uL (4.8-10.8)
[2017-07-27 07:35] LABS: ALBUMIN 2.3 gm/dl (3.1-4.5); ALKALINE PHOSPHATASE 131 U/L (45-117); BUN 10 mg/dl (7-24); CHLORIDE 112 mmol/L (98-107); CHOLESTEROL 79 mg/dL (<200); CREATININE 0.81 mg/dL (0.70-1.30); FREE T4 0.97 ng/dl (0.76-1.46); HDL CHOLESTEROL 35 mg/dl (40-60); LDL CHOLESTEROL 31 mg/dL (9-159); PHOSPHOROUS 2.5 mg/dL (2.5-4.9); POTASSIUM 3.9 mmol/L (3.5-5.1); SGOT/AST 12 IU/L (3-35); SGPT/ALT 12 U/L (12-78); SODIUM 146 mmol/L (136-145); TRIGLYCERIDES 65 mg/dl (<150); VLDL CHOLESTEROL 13 mg/dL (6-40)
[2017-07-27 07:40] LABS: TOTAL PROTEIN 5.5 gm/dL (6.4-8.2)
[2017-07-27 08:00] VITALS: BP 123/69
[2017-07-27] MEDS ORDERED: ELIQUIS5 M1 PO (10:26)
[2017-07-27] MEDS ORDERED: XANAX0.25 MG PO (10:26)
[2017-07-27] MEDS ORDERED: VITAMIN D31000 UNIT PO (10:27)
[2017-07-27] MEDS ORDERED: TAMSULOSIN HCL0.4 MG PO (10:28)
[2017-07-27] MEDS ORDERED: OCUVITE SOFTGE1 EACH PO (10:28)
[2017-07-27] MEDS ORDERED: TOPROL XL50 M1 PO (10:34)
[2017-07-27 12:00] VITALS: BP 102/60
[2017-07-27 16:00] VITALS: BP 96/54
[2017-07-27 20:00] VITALS: BP 117/61
[2017-07-28] VITALS: BP 91/50
[2017-07-28 06:28] LABS: BASO % 0.4 % (0.0-1.0); EOS # 0.1 10*3/uL (0.0-0.4); EOS % 2.2 % (1.0-4.0); HEMATOCRIT 30.7 % (42.0-52.0); HEMOGLOBIN 9.7 g/dl (14.0-18.0); LYMPH # 2.2 10*3/uL (1.3-4.4); LYMPH % 41.5 % (27.0-41.0); MEAN CELL VOLUME 99.4 fl (80.0-94.0); MEAN CORPUSCULAR HGB 31.4 pg (27.0-31.0); MEAN CORPUSCULAR HGB CONC 31.6 g/dl (33.0-37.0); MEAN PLATELET VOLUME 10.4 fl (9.6-12.3); MONO # 0.5 10*3/uL (0.1-1.0); MONO % 10.1 % (3.0-9.0); NEUT # 2.4 10*3/uL (2.3-7.9); NEUT % 45.4 % (47.0-73.0); PLATELET COUNT AUTOMATED 200 10*3/uL (130-400); RED BLOOD COUNT 3.09 10*6/uL (4.50-5.90); RED CELL DISTRI WIDTH 16.3 % (0-14.5); WHITE BLOOD COUNT 5.4 10*3/uL (4.8-10.8)
[2017-07-28 06:57] LABS: BUN 8 mg/dl (7-24); CHLORIDE 113 mmol/L (98-107); CREATININE 0.87 mg/dL (0.70-1.30); PHOSPHOROUS 2.4 mg/dL (2.5-4.9); POTASSIUM 3.4 mmol/L (3.5-5.1); SODIUM 149 mmol/L (136-145)
[2017-07-28 08:00] VITALS: BP 103/55
[2017-07-28 10:45] LABS: INTERNATIONAL NORM RATIO 1.3 (2.0-3.5)
[2017-07-28 12:00] VITALS: BP 110/69
[2017-07-28 16:00] VITALS: BP 110/56
[2017-07-28 20:00] VITALS: BP 122/66
[2017-07-29] VITALS (7 sets, daily range): BP systolic 80–115; BP diastolic 42–74
[2017-07-29 06:08] LABS: BASO % 0.6 % (0.0-1.0); EOS # 0.1 10*3/uL (0.0-0.4); EOS % 2.7 % (1.0-4.0); HEMATOCRIT 29.9 % (42.0-52.0); HEMOGLOBIN 9.4 g/dl (14.0-18.0); LYMPH # 2.5 10*3/uL (1.3-4.4); MEAN CELL VOLUME 100.7 fl (80.0-94.0); MEAN CORPUSCULAR HGB 31.6 pg (27.0-31.0); MEAN CORPUSCULAR HGB CONC 31.4 g/dl (33.0-37.0); MEAN PLATELET VOLUME 10.2 fl (9.6-12.3); MONO # 0.6 10*3/uL (0.1-1.0); MONO % 10.5 % (3.0-9.0); PLATELET COUNT AUTOMATED 190 10*3/uL (130-400); RED BLOOD COUNT 2.97 10*6/uL (4.50-5.90); RED CELL DISTRI WIDTH 16.3 % (0-14.5); WHITE BLOOD COUNT 5.2 10*3/uL (4.8-10.8)
[2017-07-29 06:32] LABS: ALKALINE PHOSPHATASE 105 U/L (45-117); BUN 6 mg/dl (7-24); CHLORIDE 112 mmol/L (98-107); CREATININE 0.84 mg/dL (0.70-1.30); POTASSIUM 3.6 mmol/L (3.5-5.1); SGOT/AST 13 IU/L (3-35); SGPT/ALT 11 U/L (12-78); SODIUM 146 mmol/L (136-145); TOTAL PROTEIN 4.9 gm/dL (6.4-8.2)
[2017-07-30] VITALS: BP 111/59
[2017-07-30 06:04] LABS: BASO % 0.5 % (0.0-1.0); EOS # 0.2 10*3/uL (0.0-0.4); EOS % 2.3 % (1.0-4.0); HEMOGLOBIN 10.2 g/dl (14.0-18.0); LYMPH # 3.1 10*3/uL (1.3-4.4); LYMPH % 41.3 % (27.0-41.0); MEAN CELL VOLUME 101.3 fl (80.0-94.0); MEAN CORPUSCULAR HGB 32.3 pg (27.0-31.0); MEAN CORPUSCULAR HGB CONC 31.9 g/dl (33.0-37.0); MEAN PLATELET VOLUME 10.4 fl (9.6-12.3); MONO # 0.7 10*3/uL (0.1-1.0); MONO % 8.9 % (3.0-9.0); NEUT # 3.5 10*3/uL (2.3-7.9); NEUT % 46.7 % (47.0-73.0); PLATELET COUNT AUTOMATED 200 10*3/uL (130-400); RED BLOOD COUNT 3.16 10*6/uL (4.50-5.90); RED CELL DISTRI WIDTH 15.9 % (0-14.5); WHITE BLOOD COUNT 7.4 10*3/uL (4.8-10.8)
[2017-07-30 06:15] LABS: BUN 7 mg/dl (7-24); CHLORIDE 110 mmol/L (98-107); CREATININE 0.94 mg/dL (0.70-1.30); POTASSIUM 4.2 mmol/L (3.5-5.1); SODIUM 142 mmol/L (136-145)
[2017-07-30 08:00] VITALS: BP 125/71
[2017-07-30 09:47] LABS: INTERNATIONAL NORM RATIO 3.6 (2.0-3.5)
[2017-07-30 12:00] VITALS: BP 144/64
[2017-07-30 16:00] VITALS: BP 123/74
[2017-07-30 20:00] VITALS: BP 121/67
[2017-07-31] VITALS: BP 129/73
[2017-07-31 06:33] LABS: BASO % 0.4 % (0.0-1.0); EOS # 0.1 10*3/uL (0.0-0.4); EOS % 2.3 % (1.0-4.0); HEMATOCRIT 28.3 % (42.0-52.0); HEMOGLOBIN 9.2 g/dl (14.0-18.0); LYMPH # 2.4 10*3/uL (1.3-4.4); LYMPH % 45.4 % (27.0-41.0); MEAN CELL VOLUME 99.6 fl (80.0-94.0); MEAN CORPUSCULAR HGB 32.4 pg (27.0-31.0); MEAN CORPUSCULAR HGB CONC 32.5 g/dl (33.0-37.0); MEAN PLATELET VOLUME 10.8 fl (9.6-12.3); MONO # 0.6 10*3/uL (0.1-1.0); MONO % 10.5 % (3.0-9.0); NEUT # 2.2 10*3/uL (2.3-7.9); NEUT % 41.4 % (47.0-73.0); PLATELET COUNT AUTOMATED 175 10*3/uL (130-400); RED BLOOD COUNT 2.84 10*6/uL (4.50-5.90); RED CELL DISTRI WIDTH 15.9 % (0-14.5); WHITE BLOOD COUNT 5.3 10*3/uL (4.8-10.8)
[2017-07-31 06:52] LABS: BUN 8 mg/dl (7-24); CHLORIDE 109 mmol/L (98-107); CREATININE 0.74 mg/dL (0.70-1.30); PHOSPHOROUS 2.2 mg/dL (2.5-4.9); POTASSIUM 3.6 mmol/L (3.5-5.1); SODIUM 143 mmol/L (136-145)
[2017-07-31 08:00] VITALS: BP 122/78
[2017-07-31 09:53] LABS: INTERNATIONAL NORM RATIO 3.2 (2.0-3.5)
[2017-07-31 12:00] VITALS: BP 117/68
[2017-07-31 16:00] VITALS: BP 124/61
[2017-07-31 20:00] VITALS: BP 129/75
[2017-08-01] VITALS: BP 122/81
[2017-08-01 08:00] VITALS: BP 145/84
[2017-08-01 10:32] LABS: INTERNATIONAL NORM RATIO 2.3 (2.0-3.5)
[2017-08-01 12:00] VITALS: BP 134/79
[2017-08-01 16:00] VITALS: BP 130/75
[2017-08-01 16:15] LABS: BASO % 0.3 % (0.0-1.0); EOS # 0.1 10*3/uL (0.0-0.4); EOS % 1.6 % (1.0-4.0); HEMATOCRIT 31.8 % (42.0-52.0); HEMOGLOBIN 10.3 g/dl (14.0-18.0); LYMPH # 2.1 10*3/uL (1.3-4.4); LYMPH % 34.7 % (27.0-41.0); MEAN CELL VOLUME 98.1 fl (80.0-94.0); MEAN CORPUSCULAR HGB 31.8 pg (27.0-31.0); MEAN CORPUSCULAR HGB CONC 32.4 g/dl (33.0-37.0); MEAN PLATELET VOLUME 9.8 fl (9.6-12.3); MONO # 0.6 10*3/uL (0.1-1.0); MONO % 10.3 % (3.0-9.0); NEUT # 3.2 10*3/uL (2.3-7.9); NEUT % 52.6 % (47.0-73.0); PLATELET COUNT AUTOMATED 192 10*3/uL (130-400); RED BLOOD COUNT 3.24 10*6/uL (4.50-5.90); WHITE BLOOD COUNT 6.1 10*3/uL (4.8-10.8)
[2017-08-01 16:44] LABS: ALBUMIN 2.1 gm/dl (3.1-4.5); ALKALINE PHOSPHATASE 109 U/L (45-117); BUN 12 mg/dl (7-24); CHLORIDE 108 mmol/L (98-107); CREATININE 0.88 mg/dL (0.70-1.30); POTASSIUM 4.3 mmol/L (3.5-5.1); SGOT/AST 22 IU/L (3-35); SGPT/ALT 20 U/L (12-78); SODIUM 143 mmol/L (136-145); TOTAL PROTEIN 5.1 gm/dL (6.4-8.2); TROPONIN I 0.019 ng/ml (<0.045)
[2017-08-01 20:00] VITALS: BP 109/61
[2017-08-02] VITALS: BP 135/69
[2017-08-02 06:48] LABS: INTERNATIONAL NORM RATIO 2.5 (2.0-3.5)
[2017-08-02 08:00] VITALS: BP 130/77
[2017-08-02 12:00] VITALS: BP 118/68
[2017-08-02 16:00] VITALS: BP 108/64
[2017-08-02 20:00] VITALS: BP 119/69
[2017-08-03] VITALS: BP 128/70
[2017-08-03 06:58] LABS: INTERNATIONAL NORM RATIO 3.2 (2.0-3.5)
[2017-08-03 08:00] VITALS: BP 133/77
[2017-08-03 12:00] VITALS: BP 96/58
[2017-08-03 16:00] VITALS: BP 125/67
[2017-08-03 20:00] VITALS: BP 134/75
[2017-08-04] VITALS: BP 145/81
[2017-08-04 07:07] LABS: INTERNATIONAL NORM RATIO 3.9 (2.0-3.5)
[2017-08-04 08:00] VITALS: BP 135/78
[2017-08-04 12:00] VITALS: BP 105/53
[2017-08-04] MEDS ORDERED: Coumadin2 MG PO (13:14)
[2017-08-04] MEDS ORDERED: PERCOCET 5-3251 EACH PO (13:19)
== END 2017-08-04 16:20 | disposition other institution (70) | DRG 689 ==
LOC: ED 14:37 → EDHOLD 18:09 → 5E 18:09
PROVIDERS: Internal Medicine; Internal Medicine Nephrology; Physician Assistant; Registered Nurse
DX: N30.01 Acute cystitis with hematuria (principal); E43 Unspecified severe protein-calorie malnutrition; L89.212 Pressure ulcer of right hip, stage 2; I82.432 Acute embolism and thrombosis of left popliteal vein; E87.0 Hyperosmolality and hypernatremia; G62.9 Polyneuropathy, unspecified; G30.9 Alzheimer's disease, unspecified; F02.81 Dementia in other diseases classified elsewhere, unspecified severity, with behavioral disturbance; I82.4Z2 Acute embolism and thrombosis of unspecified deep veins of left distal lower extremity; I82.612 Acute embolism and thrombosis of superficial veins of left upper extremity; E86.0 Dehydration; I48.0 Paroxysmal atrial fibrillation; R07.9 Chest pain, unspecified; I10 Essential (primary) hypertension; K21.9 Gastro-esophageal reflux disease without esophagitis; I25.709 Atherosclerosis of coronary artery bypass graft(s), unspecified, with unspecified angina pectoris; M54.5 Low back pain; M15.9 Polyosteoarthritis, unspecified; H35.30 Unspecified macular degeneration; E55.9 Vitamin D deficiency, unspecified; R74.8 Abnormal levels of other serum enzymes; B96.20 Unspecified Escherichia coli [E. coli] as the cause of diseases classified elsewhere; G89.29 Other chronic pain; Z96.651 Presence of right artificial knee joint; Z90.49 Acquired absence of other specified parts of digestive tract; Z95.1 Presence of aortocoronary bypass graft; Z68.28 Body mass index [BMI] 28.0-28.9, adult; Z95.5 Presence of coronary angioplasty implant and graft; Z86.73 Personal history of transient ischemic attack (TIA), and cerebral infarction without residual deficits; Z86.718 Personal history of other venous thrombosis and embolism; Z86.711 Personal history of pulmonary embolism; Z95.810 Presence of automatic (implantable) cardiac defibrillator; Z79.02 Long term (current) use of antithrombotics/antiplatelets; Z79.01 Long term (current) use of anticoagulants; Z79.899 Other long term (current) drug therapy; Z91.048 Other nonmedicinal substance allergy status; Z82.49 Family history of ischemic heart disease and other diseases of the circulatory system; Z82.69 Family history of other diseases of the musculoskeletal system and connective tissue; Z83.3 Family history of diabetes mellitus; Z80.8 Family history of malignant neoplasm of other organs or systems